=== PATIENT | male | born 1980 | race Hispanic/Latino ===

== ENCOUNTER 2018-01-16 21:19 | Inpatient (IN) | payer MEDICAID ==
[2018-01-16 23:21] LABS: BASO # 0.1 K/uL (0.0-0.2); BASO % 0.9 % (0.0-2.0); EOS # 0.2 K/uL (0.0-0.7); EOS % 1.7 % (0.0-4.0); HEMOGLOBIN 14.5 g/dL (12.0-18.0); LYMPH # 2.2 K/uL (1.0-4.3); MEAN CELL VOLUME 91.7 fL (80.0-94.0); MEAN CORPUSCULAR HEMOGLOBIN 32.1 pg (27.0-31.0); MEAN PLATELET VOLUME 8.3 fL (7.2-11.7); MONO # 1.1 K/uL (0.0-0.8); MONO % 10.9 % (0.0-10.0); NEUT # 6.5 K/uL (1.8-7.0); NEUT % 64.5 % (50.0-75.0); RBC 4.52 Mil/uL (4.40-5.90); RED CELL DISTRIBUTION WIDTH 13.2 % (11.5-14.5); WHITE BLOOD COUNT 10.1 K/uL (4.8-10.8)
[2018-01-16 23:21] LABS: URINE AMORPHOUS SEDIMENT RARE /ul (<OCC); URINE BACTERIA RARE (<OCC); URINE BILIRUBIN NEGATIVE (NEGATIVE); URINE BLOOD NEGATIVE (NEGATIVE); URINE CLARITY Hazy (Clear); URINE COLOR Yellow (YELLOW); URINE GLUCOSE (UA) NORMAL (Normal); URINE LEUKOCYTE ESTERASE NEG Leu/uL (Negative); URINE PROTEIN NEGATIVE (NEGATIVE)
[2018-01-16 23:29] LABS: BARBITURATES, UR NEGATIVE (NEGATIVE); BENZODIAZEPINES, UR NEGATIVE (NEGATIVE); OPIATES, UR POSITIVE (NEGATIVE)
[2018-01-16 23:33] LABS: ALB/GLOB RATIO 1.2 (1.0-2.1); ALBUMIN 4.4 g/dL (3.5-5.0); ALT/SGPT 28 U/L (21-72); AST/SGOT 28 U/L (17-59); BLOOD UREA NITROGEN 13 mg/dL (9-20); CALCIUM 9.6 mg/dl (8.6-10.4); GFR AFRICAN-AMERICAN > 60; GFR NON-AFRICAN AMERICAN > 60
[2018-01-16 23:46] LABS: PHENCYCLIDINE, UR NEGATIVE (NEGATIVE)
--- NOTE | 2018-01-17 00:30 | C.PDOC ---
Time Seen by Provider: 01/16/18 22:18 Chief Complaint (Nursing): Psychiatric Evaluation History Per: Patient Onset/Duration Of Symptoms: Days Current Symptoms Are (Timing): Still Present Suicide/Self Injury Attempted (Context): None Modifying Factor(s): Narcotics Severity: Moderate Associated Symptoms: Depression Additional History Per: Prior Records Past Medical History Reviewed: Historical Data, Nursing Documentation, Vital Signs Vital Signs: Last Vital Signs Temp 98 F 01/16/18 21:55 Pulse 98 H 01/16/18 21:55 Resp 14 01/16/18 21:55 BP 109/64 01/16/18 21:55 Pulse Ox 96 01/17/18 00:30 - Medical History PMH: Bipolar Disorder, Depression, Personality Disorder Family History: States: Unknown Family Hx - Social History Hx Alcohol Use: Yes Hx Substance Use: Yes - Immunization History Hx Tetanus Toxoid Vaccination: No Hx Influenza Vaccination: No Hx Pneumococcal Vaccination: No Review Of Systems Except As Marked, All Systems Reviewed And Found Negative. Constitutional: Negative for: Fever Cardiovascular: Negative for: Chest Pain Respiratory: Negative for: Shortness of Breath Gastrointestinal: Negative for: Vomiting, Abdominal Pain Musculoskeletal: Negative for: Neck Pain Neurological: Negative for: Weakness, Numbness Physical Exam - Physical Exam Appears: Non-toxic, No Acute Distress Skin: Normal Color, Warm, Dry, No Rash Head: Atraumatic, Normacephalic Eye(s): bilateral: PERRL, EOMI Neck: Normal ROM, Supple Cardiovascular: Rhythm Regular Respiratory: Normal Breath Sounds, No Accessory Muscle Use Gastrointestinal/Abdominal: Soft, No Tenderness Back: No CVA Tenderness Extremity: Normal ROM Neurological/Psych: Oriented x3, Normal Motor, Normal Sensation ED Course And Treatment - Laboratory Results Result Diagrams: 01/16/18 23:17 01/16/18 23:17 Lab Interpretation: No Acute Changes O2 Sat by Pulse Oximetry: 96 Pulse Ox Interpretation: Normal Disposition - Disposition Disposition Time: 00:57 Condition: STABLE Forms: [facility] (Eritrean) - Clinical Impression Clinical Impression: Drug abuse, Depressed Physician Patient Turnover Patient Signed Over To: Jeanne Sánchez Handoff Comments: to f/up road worker
--- NOTE | 2018-01-17 07:45 | PCM.BM ---
<Emili Garcia - Last Filed: 01/17/18 07:43> Treatment Plan Problems - Problems identified on initial assessmt Depression Date Initiated: 01/17/18 Time Initiated: 07:44 Assessment reference: NA Status: Active Substance Abuse Date Initiated: 01/17/18 Time Initiated: 07:44 Assessment reference: NA Status: Active Treatment assets and liabiliti Patient Assests: adapts well, cooperative, educated, self-reliant, ADL independent, physically healthy, negotiates basic needs, cognitively intact Patient Liabilities: live alone (Homeless), financial problems, poor support system, substance abuse (Heroin and ETOH), medical problems (None) - Milieu Protocol Maintain good personal hygiene: daily Encourage regular showers, daily Remind patient to perform daily oral care, daily Assist patient to perform ADL's (Self) Conduct patient checks and document Observation sheet: Q15 minutes (For safety) Maintain personal safety: every shift Educate patient to report safety concerns to staff, every shift Monitor environment for contraband/sharps Medication safety: Monitor for expected outcome, potential side effects: every shift, Assess barriers to learning: every shift, Assess readiness for medication education: every shift <Elva Lujan - Last Filed: 01/17/18 14:24> Family Contact Family involvement: Patient does not wish Family/SO involvement Family contact: Patient declines to allow family contact at present - Goals for Treatment Patient goals for treatment: " I want to go to a rehab program." <Sola Reed - Last Filed: 01/21/18 11:32> - Diagnosis (1) Major depressive disorder, recurrent severe without psychotic features Status: Acute Interventions: 01/21/18 11:32 * Assess/adjust medications daily and /or as needed * See patient on an individual basis 7x/week to assess symptoms of depression * Monitor for side effects & effectiveness of medications *
--- NOTE | 2018-01-17 10:15 | PCM.PSYCH ---
Initial Psychiatric Evaluation - Initial Psychiatric Evaluation Type of Admission: Voluntary Legal Status: Capacity Chief Complaint (in patient's own words): I was feeling extremely depressed and suicidal.' History of Present Illness and Precipitating Events: Patient is a 37 yo CM with h/o depression, alcohol and opioid abuse, came to the ED with SI with plan to OD. As per the ED notes, pt reported that he stopped taking his meds and relapsed on alcohol and heroin. Pt reports the following: "If I keep using, I'm going to kill myself." Pt continued: "My depression has been so bad." I haven't had my medications" Just can't seem to get ahead in life;" Pt reports having vague thoughts of suicide (without plan) over the past "few days"; Pt reports symptoms of anhedonia, which he described as: "It's like to the point I can't even moved;" I'm drained of all my energy." Pt reports of abusing ETOH more than 1 pint daily and heroin upto 10 bags daily. His last abuse was yesterday, when he abused heroin 10 bags and consumed 1 pint of alcohol. He reports depressed mood and feelings of hopelessness and helplessness. He reports poor sleep and poor appetite. He denies any auditory of visual hallucinations or any psychotic symptoms. He reports withdrawal symptoms including nausea, headaches, joint pains and sweating. He reports past psychiatric history of depression, heroin and alcohol abuse. He reports h/o few inpatient psychiatric hospitalizations, last discharged from [facility] 2014. He reports past SI with more than 2 attempts by OD on Xanax. PMH: None reported Past Psychiatric History - Past Psychiatric History Previous Treatment History: Inpatient Pertinent Medical Hx (Current Medical&Sleep Prob, Allergies): Allergies Allergy/AdvReac Type Severity Reaction Status Date / Time Penicillins Allergy Verified 01/16/18 21:59 No Known Home Med 01/16/18 Review of Systems - Review of Systems All systems: reviewed and no additional remarkable complaints except - Psychiatric Psychiatric: Anxiety, Irritability, Suicidal Ideation Mental Status Examination - Personal Presentation Personal Presentation: Looks stated age - Affect Affect: Constricted, Depressed - Motor Activity Motor Activity: Calm - Reliability in Providing Information Reliability in Providing Information: Fair - Speech Speech: Organized - Mood Mood: Depressed, Anxious - Formal Thought Process Formal Thought Process: No Impairment - Obsessions/Compulsions Obsessions: No Compulsions: No - Cognitive Functions Orientation: Person, Place, Situation, Time Sensorium: Alert Attention/Concentration: Attentive Abstract Thinking: [place] Estimate of Intelligence: Below average Judgement: Imparied, as evidence by: Poor judgement, Imparied, as evidence by: Lack of insight into illness - Risk Risk: Suicidal, Withdrawal, Diminished functioning - Limitations Limitations: Living alone DSM 5 DX - DSM 5 DSM 5 Diagnosis: Major depressive disorder recurrent severe without psychotic features Alcohol use disorder severe Alcohol withdrawal Opioid use disorder severe Opioid withdrawal - Recommended/Plan of Treatment Treatment Recommendations and Plan of Treatment: Major depressive disorder recurrent severe without psychotic features -Psychoeducation -Supportive therapy, group therapy, individual therapy -Prozac 20 mg -Neurontin 300 mg by mouth 2 times a day -Trazodone 50 mg by mouth daily at bedtime Opioid use disorder severe Opioid withdrawal -Psychoeducation -Supportive therapy, individual therapy -Use [place] for abstinence -Clonidine when necessary -Methadone taper -Start prn meds Alcohol use disorder severe Alcohol withdrawal -Psychoeducation -Supportive therapy, individual therapy -Use [place] for abstinence -Ativan prn - Smoking Cessation Smoking Cessation Initiated: No
[2018-01-17] MEDS ORDERED: Aluminum Hydroxide/Magnesium Hydroxide Susp (30 mL) PO PRN (11:28)
[2018-01-17] MEDS: Multiple Vitamins Tab PO SCH (12:21)
[2018-01-18 06:45] VITALS: O2SAT 99
[2018-01-18] MEDS: Multiple Vitamins Tab PO SCH (10:46)
--- NOTE | 2018-01-19 01:03 | PCM.PYCHPN ---
Psychiatric Progress Note - Psychiatric Progress Note Patient seen today, length of contact: 15 min Patient Chief Complaint: I was feeling extremely depressed and suicidal.' Problems Identified/Issues Discussed: Patient seen and evaluated, chart reviewed and discussed with the nurse. He reports depressed mood and feelings of hopelessness and helplessness. He still reports suicidal ideation without any plan. Patient remained isolated, confined and withdrawn. Patient reports withdrawal symptoms including nausea, headaches, cramps and sweating. Patient is compliant with medications and denies any side effects. Symptoms are improving but need more time to stabilize. Support and psychoeducation given. Medication Change: Yes (methadone taper) Medical Record Reviewed: Yes Mental Status Examination - Cognitive Function Orientation: Person, Place, Situation, Time Memory: Intact Attention: WNL Concentration: WNL Association: WNL Fund of Knowledge: Poor - Mood Mood: Depressed, Anxious - Affect Affect: Constricted, Depressed - Speech Speech: Soft - Formal Thought Process Formal Thought Process: No Impairment - Suicidal Ideation Suicidal Ideation: No - Homicidal Ideation Homicidal Ideation: No Goal/Treatment Plan - Goal/Treatment Plan Need for Continued Stay: Severe depression anxiety, Severe functional impairment Progress Toward Problem(s) and Goals/Treatment Plan: Major depressive disorder recurrent severe without psychotic features -Psychoeducation -Supportive therapy, group therapy, individual therapy -Prozac 20 mg -Neurontin 300 mg by mouth 2 times a day -Trazodone 50 mg by mouth daily at bedtime Opioid use disorder severe Opioid withdrawal -Psychoeducation -Supportive therapy, individual therapy -Use [place] for abstinence -Clonidine when necessary -Methadone taper -Start prn meds Alcohol use disorder severe Alcohol withdrawal -Psychoeducation -Supportive therapy, individual therapy -Use [place] for abstinence -Ativan prn - Smoking Cessation Smoking Cessation Initiated: Yes
[2018-01-19] MEDS ORDERED: Pneumococcal 23-Valent Vaccine IM ONE (10:00)
[2018-01-19] MEDS: Multiple Vitamins Tab PO SCH (10:36)
--- NOTE | 2018-01-19 22:51 | PCM.PYCHPN ---
Psychiatric Progress Note - Psychiatric Progress Note Patient seen today, length of contact: 15 min Patient Chief Complaint: I was feeling extremely depressed and suicidal.' Problems Identified/Issues Discussed: Patient seen and evaluated, chart reviewed and discussed with the nurse. He reports depressed mood and feelings of hopelessness and helplessness. He still reports suicidal ideation without any plan. Patient remained isolated, confined and withdrawn. Patient reports withdrawal symptoms including nausea, headaches, cramps and sweating. Patient is compliant with medications and denies any side effects. Symptoms are improving but need more time to stabilize. Support and psychoeducation given. Medication Change: Yes (methadone taper) Medical Record Reviewed: Yes Mental Status Examination - Cognitive Function Orientation: Person, Place, Situation, Time Memory: Intact Attention: WNL Concentration: WNL Association: WNL Fund of Knowledge: Poor - Mood Mood: Depressed, Anxious - Affect Affect: Constricted, Depressed - Speech Speech: Soft - Formal Thought Process Formal Thought Process: No Impairment - Suicidal Ideation Suicidal Ideation: No - Homicidal Ideation Homicidal Ideation: No Goal/Treatment Plan - Goal/Treatment Plan Need for Continued Stay: Severe depression anxiety, Severe functional impairment Progress Toward Problem(s) and Goals/Treatment Plan: Major depressive disorder recurrent severe without psychotic features -Psychoeducation -Supportive therapy, group therapy, individual therapy -Prozac 20 mg -Neurontin 300 mg by mouth 2 times a day -Trazodone 50 mg by mouth daily at bedtime Opioid use disorder severe Opioid withdrawal -Psychoeducation -Supportive therapy, individual therapy -Use [place] for abstinence -Clonidine when necessary -Methadone taper -Start prn meds Alcohol use disorder severe Alcohol withdrawal -Psychoeducation -Supportive therapy, individual therapy -Use [place] for abstinence -Ativan prn
[2018-01-20] MEDS: Multiple Vitamins Tab PO SCH (09:33)
--- NOTE | 2018-01-20 10:08 | PCM.PYCHPN ---
Psychiatric Progress Note - Psychiatric Progress Note Patient seen today, length of contact: 15 min Patient Chief Complaint: I am feeling less depressed.' Problems Identified/Issues Discussed: Patient seen and evaluated, chart reviewed and discussed with the nurse. He reports some improvement in his depressed mood and some improvement in the feelings of hopelessness and helplessness. Patient remained isolated, confined and withdrawn. Patient is compliant with medications and denies any side effects. Symptoms are improving but need more time to stabilize. Support and psychoeducation given. Medication Change: Yes (methadone taper) Medical Record Reviewed: Yes Mental Status Examination - Cognitive Function Orientation: Person, Place, Situation, Time Memory: Intact Attention: WNL Concentration: WNL Association: WNL Fund of Knowledge: Poor - Mood Mood: Depressed, Anxious - Affect Affect: Constricted, Depressed - Speech Speech: Soft - Formal Thought Process Formal Thought Process: No Impairment - Suicidal Ideation Suicidal Ideation: No - Homicidal Ideation Homicidal Ideation: No Goal/Treatment Plan - Goal/Treatment Plan Need for Continued Stay: Severe depression anxiety, Severe functional impairment Progress Toward Problem(s) and Goals/Treatment Plan: Major depressive disorder recurrent severe without psychotic features -Psychoeducation -Supportive therapy, group therapy, individual therapy -Prozac 40 mg -Neurontin 300 mg by mouth 3 times a day -Trazodone 50 mg by mouth daily at bedtime Opioid use disorder severe Opioid withdrawal -Psychoeducation -Supportive therapy, individual therapy -Use [place] for abstinence -Clonidine when necessary -Methadone taper -Start prn meds Alcohol use disorder severe Alcohol withdrawal -Psychoeducation -Supportive therapy, individual therapy -Use [place] for abstinence -Ativan prn - Smoking Cessation Smoking Cessation Initiated: No
[2018-01-21] MEDS: Multiple Vitamins Tab PO SCH (09:01)
--- NOTE | 2018-01-21 10:23 | PCM.PYCHPN ---
Psychiatric Progress Note - Psychiatric Progress Note Patient seen today, length of contact: 15 min Patient Chief Complaint: I still feeling depressed.' Problems Identified/Issues Discussed: Patient seen and evaluated, chart reviewed and discussed with the nurse. He reports some improvement in his depressed mood and reports some improvement in the withdrawal s/s. Patient remained isolated, confined and withdrawn. Patient is compliant with medications and denies any side effects. Symptoms are improving but need more time to stabilize. Support and psychoeducation given. Medication Change: Yes (methadone taper) Medical Record Reviewed: Yes Mental Status Examination - Cognitive Function Orientation: Person, Place, Situation, Time Memory: Intact Attention: WNL Concentration: WNL Association: WNL Fund of Knowledge: Poor - Mood Mood: Depressed, Anxious - Affect Affect: Constricted, Depressed - Speech Speech: Soft - Formal Thought Process Formal Thought Process: No Impairment - Suicidal Ideation Suicidal Ideation: No - Homicidal Ideation Homicidal Ideation: No Goal/Treatment Plan - Goal/Treatment Plan Need for Continued Stay: Severe depression anxiety, Severe functional impairment Progress Toward Problem(s) and Goals/Treatment Plan: Major depressive disorder recurrent severe without psychotic features -Psychoeducation -Supportive therapy, group therapy, individual therapy -Prozac 40 mg -Neurontin 300 mg by mouth 3 times a day -Trazodone 50 mg by mouth daily at bedtime Opioid use disorder severe Opioid withdrawal -Psychoeducation -Supportive therapy, individual therapy -Use [place] for abstinence -Clonidine when necessary -Methadone taper -Start prn meds Alcohol use disorder severe Alcohol withdrawal -Psychoeducation -Supportive therapy, individual therapy -Use [place] for abstinence -Ativan prn - Smoking Cessation Smoking Cessation Initiated: No
[2018-01-22] MEDS: Multiple Vitamins Tab PO SCH (09:46)
--- NOTE | 2018-01-23 08:47 | PCM.PYCHPN ---
Psychiatric Progress Note - Psychiatric Progress Note Patient seen today, length of contact: 15 min Patient Chief Complaint: "Nervous" Problems Identified/Issues Discussed: The pt is seen, chart reviewed, case discussed with staff. The pt is compliant with medications and reports no side-effects. Symptoms are improving but needs more time to stabilize. After care discussed, support and psychoeducation given. Medication Change: Yes (methadone taper) Medical Record Reviewed: Yes Mental Status Examination - Cognitive Function Orientation: Person, Place, Situation, Time Memory: Intact Attention: WNL Concentration: WNL Association: WNL Fund of Knowledge: Poor - Mood Mood: Depressed, Anxious - Affect Affect: Constricted, Depressed - Speech Speech: Soft - Formal Thought Process Formal Thought Process: No Impairment - Suicidal Ideation Suicidal Ideation: No - Homicidal Ideation Homicidal Ideation: No Goal/Treatment Plan - Goal/Treatment Plan Need for Continued Stay: Severe depression anxiety, Severe functional impairment Progress Toward Problem(s) and Goals/Treatment Plan: Continue medications Support and psychoeducation daily Attend groups and activities daily After care planning by NIKHIL - awaiting rehab acceptance
[2018-01-23] MEDS: Multiple Vitamins Tab PO SCH (09:06)
--- NOTE | 2018-01-23 20:43 | PCM.PYCHPN ---
Psychiatric Progress Note - Psychiatric Progress Note Patient seen today, length of contact: 15 min Patient Chief Complaint: "OK" Problems Identified/Issues Discussed: The pt is seen, chart reviewed, case discussed with staff. Support given, CBT and SD used briefly No new symptoms reported, improving slowly and needs more time No SEs from medications, risks discussed. After care discussed - he might be accepted to [facility] today Medication Change: Yes (methadone taper) Medical Record Reviewed: Yes Mental Status Examination - Cognitive Function Orientation: Person, Place, Situation, Time Memory: Intact Attention: WNL Concentration: WNL Association: WNL Fund of Knowledge: Poor - Mood Mood: Depressed, Anxious - Affect Affect: Constricted, Depressed - Speech Speech: Soft - Formal Thought Process Formal Thought Process: No Impairment - Suicidal Ideation Suicidal Ideation: No - Homicidal Ideation Homicidal Ideation: No Goal/Treatment Plan - Goal/Treatment Plan Need for Continued Stay: Severe depression anxiety, Severe functional impairment Progress Toward Problem(s) and Goals/Treatment Plan: Continue medications Support and psychoeducation daily Attend groups and activities daily After care planning by NIKHIL - awaiting rehab acceptance
[2018-01-24] MEDS: Multiple Vitamins Tab PO SCH (09:40)
--- NOTE | 2018-01-24 11:20 | PCM.PYCHPN ---
Psychiatric Progress Note - Psychiatric Progress Note Patient seen today, length of contact: 15 min Patient Chief Complaint: I still feeling depressed.' Problems Identified/Issues Discussed: Patient seen and evaluated, chart reviewed and discussed with the nurse. He reports some improvement in his depressed mood and reports some improvement in the withdrawal s/s. Patient remained isolated, confined and withdrawn. Patient is compliant with medications and denies any side effects. Symptoms are improving but need more time to stabilize. Support and psychoeducation given. Medication Change: Yes (methadone taper) Medical Record Reviewed: Yes Mental Status Examination - Cognitive Function Orientation: Person, Place, Situation, Time Memory: Intact Attention: WNL Concentration: WNL Association: WNL Fund of Knowledge: Poor - Mood Mood: Depressed, Anxious - Affect Affect: Constricted, Depressed - Speech Speech: Soft - Formal Thought Process Formal Thought Process: No Impairment - Suicidal Ideation Suicidal Ideation: No - Homicidal Ideation Homicidal Ideation: No Goal/Treatment Plan - Goal/Treatment Plan Need for Continued Stay: Severe depression anxiety, Severe functional impairment Progress Toward Problem(s) and Goals/Treatment Plan: Major depressive disorder recurrent severe without psychotic features -Psychoeducation -Supportive therapy, group therapy, individual therapy -Prozac 40 mg -Neurontin 300 mg by mouth 3 times a day -Trazodone 50 mg by mouth daily at bedtime Opioid use disorder severe Opioid withdrawal -Psychoeducation -Supportive therapy, individual therapy -Use [place] for abstinence -Clonidine when necessary -Methadone taper -Start prn meds Alcohol use disorder severe Alcohol withdrawal -Psychoeducation -Supportive therapy, individual therapy -Use [place] for abstinence -Ativan prn
[2018-01-25] MEDS: Multiple Vitamins Tab PO SCH (09:54)
--- NOTE | 2018-01-25 14:26 | PCM.PYCHPN ---
Psychiatric Progress Note - Psychiatric Progress Note Patient seen today, length of contact: 15 min Patient Chief Complaint: I still feeling depressed.' Problems Identified/Issues Discussed: Patient seen and evaluated, chart reviewed and discussed with the nurse. He reports some improvement in his depressed mood and reports some improvement in the withdrawal s/s. Patient remained isolated, confined and withdrawn. Patient is compliant with medications and denies any side effects. Symptoms are improving but need more time to stabilize. Support and psychoeducation given. Medication Change: Yes (methadone taper) Medical Record Reviewed: Yes Mental Status Examination - Cognitive Function Orientation: Person, Place, Situation, Time Memory: Intact Attention: WNL Concentration: WNL Association: WNL Fund of Knowledge: Poor - Mood Mood: Depressed, Anxious - Affect Affect: Constricted, Depressed - Speech Speech: Soft - Formal Thought Process Formal Thought Process: No Impairment - Suicidal Ideation Suicidal Ideation: No - Homicidal Ideation Homicidal Ideation: No Goal/Treatment Plan - Goal/Treatment Plan Need for Continued Stay: Severe depression anxiety, Severe functional impairment Progress Toward Problem(s) and Goals/Treatment Plan: Major depressive disorder recurrent severe without psychotic features -Psychoeducation -Supportive therapy, group therapy, individual therapy -Prozac 40 mg -Neurontin 300 mg by mouth 3 times a day -Trazodone 50 mg by mouth daily at bedtime Opioid use disorder severe Opioid withdrawal -Psychoeducation -Supportive therapy, individual therapy -Use [place] for abstinence -Clonidine when necessary -Methadone taper -Start prn meds Alcohol use disorder severe Alcohol withdrawal -Psychoeducation -Supportive therapy, individual therapy -Use [place] for abstinence -Ativan prn
[2018-01-26 06:15] VITALS: RESP 20; TEMP 97.8
[2018-01-26] MEDS: Multiple Vitamins Tab PO SCH (09:50)
[2018-01-26 10:15] VITALS: BP 120/71; PULSE 66
--- NOTE | 2018-01-26 10:45 | PCM.PYCHDC ---
Mental Status Examination - Mental Status Examination Orientation: Person, Place, Situation, Time Memory: Intact Mood: Neutral Affect: Constricted Speech: Soft Attention: WNL Concentration: WNL Association: WNL Fund of Knowledge: WNL Formal Thought Process: No Impairment Description of patient's judgement and insight: good, fair Psychotic Thoughts and Behaviors: denies any AVH Suicidal Ideation: No Current Homicidal Ideation?: No Discharge Summary - Discharge Note Reason for Hospitalization: Patient is a 37 yo CM with h/o depression, alcohol and opioid abuse, came to the ED with SI with plan to OD. As per the ED notes, pt reported that he stopped taking his meds and relapsed on alcohol and heroin. Pt reports the following: "If I keep using, I'm going to kill myself." Pt continued: "My depression has been so bad." I haven't had my medications" Just can't seem to get ahead in life;" Pt reports having vague thoughts of suicide (without plan) over the past "few days"; Pt reports symptoms of anhedonia, which he described as: "It's like to the point I can't even moved;" I'm drained of all my energy." Pt reports of abusing ETOH more than 1 pint daily and heroin upto 10 bags daily. His last abuse was yesterday, when he abused heroin 10 bags and consumed 1 pint of alcohol. He reports depressed mood and feelings of hopelessness and helplessness. He reports poor sleep and poor appetite. He denies any auditory of visual hallucinations or any psychotic symptoms. He reports withdrawal symptoms including nausea, headaches, joint pains and sweating. He reports past psychiatric history of depression, heroin and alcohol abuse. He reports h/o few inpatient psychiatric hospitalizations, last discharged from [facility] 2014. He reports past SI with more than 2 attempts by OD on Xanax. Consultations:: List each consultation separately and include: 1. Reason for request. 2. Findings. 3. Follow-up Summary of Hospital Course include:: 1. Description of specific treatment plan utilized for patients during their course of treatmen. 2. Summarize the time- course for resolution of acute symptoms and/or regressed behaviors. 3. Describe issues identified and worked on during hospitalization. 4. Describe medication utilized. 5. Describe medical problems identified and treated. 6. Reassessment of suicide risk Summary of Hospital Course: Patient is a 37 yo CM with h/o depression, alcohol and opioid abuse, came to the ED with SI with plan to OD. As per the ED notes, pt reported that he stopped taking his meds and relapsed on alcohol and heroin. Pt reports the following: "If I keep using, I'm going to kill myself." Pt continued: "My depression has been so bad." I haven't had my medications" Just can't seem to get ahead in life;" Pt reports having vague thoughts of suicide (without plan) over the past "few days"; Pt reports symptoms of anhedonia, which he described as: "It's like to the point I can't even moved;" I'm drained of all my energy." Pt reports of abusing ETOH more than 1 pint daily and heroin upto 10 bags daily. His last abuse was yesterday, when he abused heroin 10 bags and consumed 1 pint of alcohol. He reports depressed mood and feelings of hopelessness and helplessness. He reports poor sleep and poor appetite. He denies any auditory of visual hallucinations or any psychotic symptoms. He reports withdrawal symptoms including nausea, headaches, joint pains and sweating. He reports past psychiatric history of depression, heroin and alcohol abuse. He reports h/o few inpatient psychiatric hospitalizations, last discharged from [facility] 2014. He reports past SI with more than 2 attempts by OD on Xanax. PMH: None reported - Diagnosis (1) Major depressive disorder, recurrent severe without psychotic features Current Visit: Yes Status: Acute - Final Diagnosis (DSM 5) Condition upon Discharge: STABLE Disposition: HOME/ ROUTINE Follow-up Treatment Plan: Major depressive disorder recurrent severe without psychotic features -Psychoeducation -Supportive therapy, group therapy, individual therapy -Prozac 40 mg -Neurontin 300 mg by mouth 3 times a day -Trazodone 50 mg by mouth daily at bedtime Opioid use disorder severe Opioid withdrawal -Psychoeducation -Supportive therapy, individual therapy -Use AL for abstinence -Clonidine when necessary -Methadone taper -Start prn meds Alcohol use disorder severe Alcohol withdrawal -Psychoeducation -Supportive therapy, individual therapy -Use AL for abstinence -Ativan prn Prescriptions/Medication Reconciliation: FLUoxetine [Prozac] 40 mg PO DAILY #30 cap Gabapentin [Neurontin] 300 mg PO TID #90 cap traZODone [Desyrel] 100 mg PO HS PRN #30 tab PRN Reason: Insomnia
== END 2018-01-26 14:36 | disposition home or self-care (01) | DRG 744 ==
LOC: C.ER 21:19 → C.5E 01-17 06:15
PROVIDERS: ADMIT Psychiatry & Neurology Psychiatry; ATTEND Psychiatry & Neurology Psychiatry
PROC: HZ2ZZZZ Detoxification Services for Substance Abuse Treatment (ICD-10-PCS; principal; 2018-01-17)
PROC: GZHZZZZ Group Psychotherapy (ICD-10-PCS; 2018-01-17)
DX: F11.23 Opioid dependence with withdrawal (principal); F33.2 Major depressive disorder, recurrent severe without psychotic features; F17.200 Nicotine dependence, unspecified, uncomplicated; F60.9 Personality disorder, unspecified; F10.10 Alcohol abuse, uncomplicated; Y90.9 Presence of alcohol in blood, level not specified

== ENCOUNTER 2018-03-18 18:11 | Inpatient (IN) | payer MEDICAID ==
[2018-03-18 18:34] VITALS: BMI 29.1
[2018-03-18] MEDS ORDERED: Clindamycin 600 MG in Sodium Chloride 0.9% 100 ML IVPB STA (20:25)
[2018-03-18] MEDS ORDERED: Vancomycin 1 gm/NS 200 ml 1 GM/200 ML BAG IVPB STA (20:25)
[2018-03-18] MEDS ORDERED: Sodium Chloride 0.9% 1,000 ML IV ONE (20:28)
--- NOTE | 2018-03-18 20:35 | C.PDOC ---
History Of Present Illness 37 year old male presents to the ED for evaluation of worsening pain, swelling and burning to his bilateral lower extremities. Patient was evaluated in [facility] 4 days ago and was ruled out for possibility of DVT. Patient states he feels very ill and his symptoms have been worsening. Patient states he was prescribed Furosemide without improvement. Patient reports smoking one pack/day for the past 20 years and admits to social drinking. He denies fever, chills, chest pain, shortness of breath, extremity numbness/ weakness or recent trauma/injury to the areas. Time Seen by Provider: 03/18/18 19:08 Chief Complaint (Nursing): Lower Extremity Problem/Injury History Per: Patient History/Exam Limitations: no limitations Onset/Duration Of Symptoms: Days Current Symptoms Are (Timing): Worse Past Medical History Reviewed: Historical Data, Nursing Documentation, Vital Signs Vital Signs: Last Vital Signs Temp 100.8 F H 03/18/18 18:34 Pulse 105 H 03/18/18 18:34 Resp 19 03/18/18 18:34 BP 123/71 03/18/18 18:34 Pulse Ox 96 03/18/18 22:08 - Medical History PMH: Bipolar Disorder, Depression, Personality Disorder Denies: Diabetes, Hepatitis, HIV, HTN, Seizures, Sexually Transmitted Disease Surgical History: No Surg Hx - [facility] Procedures DETOXIFICATION SERVICES FOR SUBSTANCE ABUSE TREATMENT (01/17/18) GROUP PSYCHOTHERAPY (01/17/18) Family History: States: Unknown Family Hx - Social History Hx Alcohol Use: Yes Hx Substance Use: Yes (Cleaned of heroine since 01/2018) - Immunization History Hx Tetanus Toxoid Vaccination: No Hx Influenza Vaccination: No Hx Pneumococcal Vaccination: No Review Of Systems Constitutional: Negative for: Fever, Chills Cardiovascular: Negative for: Chest Pain Respiratory: Negative for: Shortness of Breath Musculoskeletal: Positive for: Leg Pain (pain, swelling and burning to bilateral lower extremities ) Neurological: Negative for: Weakness, Numbness Physical Exam - Physical Exam Appears: Non-toxic, No Acute Distress Skin: Warm, Dry, Other (erythema and warmth extending from bilateral ankles to groins, consistent with cellulitis) Head: Atraumatic, Normacephalic Eye(s): bilateral: Normal Inspection Oral Mucosa: Moist Neck: Supple Chest: Symmetrical, No Deformity, No Tenderness Cardiovascular: Rhythm Regular, No Murmur Respiratory: Normal Breath Sounds, No Rales, No Rhonchi, No Wheezing Extremity: Normal ROM, Capillary Refill (less than 2 seconds ) Pulses: Left Dorsalis Pedis: Normal, Right Dorsalis Pedis: Normal Neurological/Psych: Oriented x3, Normal Speech, Normal Cognition ED Course And Treatment - Laboratory Results Result Diagrams: 03/18/18 20:59 03/18/18 20:59 ECG: Interpreted By Me, Viewed By Me ECG Rhythm: Sinus Rhythm Interpretation Of ECG: WY: 144. QRS: 90. QT: 380. QTC: 424. no ischemic changes. Rate From EC (bpm) O2 Sat by Pulse Oximetry: 96 (on RA) Pulse Ox Interpretation: Normal - Radiology CXR: Interpreted by Me, Viewed By Me CXR Interpretation: Yes: Other (negative ) Medical Decision Making Medical Decision Making: Progress: Bloodwork, urinalysis, CXR, and EKG ordered and reviewed. Clindamycin IVP, Vancomycin IVP and IV Fluids administered. 21:[address] Pulido, who accepts the patient under his care. Disposition Doctor Will See Patient In The: Hospital Counseled Patient/Family Regarding: Diagnosis - Disposition Disposition: HOSPITALIZED Disposition Time: 21:57 Condition: GUARDED - Clinical Impression Clinical Impression: Cellulitis - Scribe Statement The provider has reviewed the documentation as recorded by the Scribe (Marlen Thompson) Provider Attestation: All medical record entries made by the Scribe were at my direction and personally dictated by me. I have reviewed the chart and agree that the record accurately reflects my personal performance of the history, physical exam, medical decision making, and the department course for this patient. I have also personally directed, reviewed, and agree with the discharge instructions and disposition.
[2018-03-18] MEDS ORDERED: Sodium Chloride 0.9% 1,000 ML ONE (20:47)
[2018-03-18] MEDS ORDERED: Clindamycin 600mg/50ml NS 600 MG/50 ML BAG IVPB ONE ×2 (20:47→21:00)
[2018-03-18 21:02] LABS: BASO % 0.7 % (0.0-2.0); EOS # 0.1 K/uL (0.0-0.7); EOS % 0.9 % (0.0-4.0); HEMOGLOBIN 12.9 g/dL (12.0-18.0); LYMPH # 0.8 K/uL (1.0-4.3); LYMPH % 10.5 % (20.0-40.0); MEAN CELL VOLUME 92.5 fL (80.0-94.0); MEAN CORPUSCULAR HEMOGLOBIN 31.5 pg (27.0-31.0); MEAN PLATELET VOLUME 8.1 fL (7.2-11.7); MONO % 13.8 % (0.0-10.0); NEUT # 5.4 K/uL (1.8-7.0); NEUT % 74.1 % (50.0-75.0); RBC 4.11 Mil/uL (4.40-5.90); WHITE BLOOD COUNT 7.3 K/uL (4.8-10.8)
[2018-03-18 21:19] LABS: ALB/GLOB RATIO 1.4 (1.0-2.1); ALBUMIN 3.9 g/dL (3.5-5.0); ALT/SGPT 126 U/L (21-72); AST/SGOT 320 U/L (17-59); BLOOD UREA NITROGEN 15 mg/dL (9-20); CALCIUM 8.8 mg/dl (8.6-10.4); GFR AFRICAN-AMERICAN > 60; GFR NON-AFRICAN AMERICAN > 60
[2018-03-18] MEDS ORDERED: Aztreonam 2 GM in Sodium Chloride 0.9% 100 ML IVPB ONE (21:55)
[2018-03-19] MEDS ORDERED: Vancomycin 1 gm/NS 200 ml 1 GM/200 ML BAG IVPB SCH (00:30)
[2018-03-19 01:09] LABS: SQUAMOUS EPITHIAL < 1 /hpf (0-5); URINE BILIRUBIN NEGATIVE (NEGATIVE); URINE BLOOD NEGATIVE (NEGATIVE); URINE CLARITY Clear (Clear); URINE COLOR Amber (YELLOW); URINE GLUCOSE (UA) NORMAL (Normal); URINE LEUKOCYTE ESTERASE NEG Leu/uL (Negative); URINE PROTEIN NEGATIVE (NEGATIVE)
[2018-03-19] MEDS: Aztreonam 2 GM in Sodium Chloride 0.9% 100 ML IVPB SCH ×3 (01:16→15:42)
[2018-03-19] MEDS: Enoxaparin 40 mg Syringe SC SCH (10:21)
[2018-03-19] MEDS: Vancomycin 1 gm/NS 200 ml 1 GM/200 ML BAG IVPB SCH ×2 (12:02→23:45)
--- NOTE | 2018-03-19 18:00 | RAD ---
HISTORY: Sepsis Patient COMPARISON: No prior. TECHNIQUE: Chest PA and lateral FINDINGS: LUNGS: No active pulmonary disease. PLEURA: No significant pleural effusion identified. No pneumothorax apparent. CARDIOVASCULAR: Normal. OSSEOUS STRUCTURES: No significant abnormalities. VISUALIZED UPPER ABDOMEN: Normal. OTHER FINDINGS: None. IMPRESSION: No active disease.
--- NOTE | 2018-03-20 00:37 | CP.PCM.HP ---
History of Present Illness - History of Present Illness History of Present Illness: History Of Present Illness 37 year old male presents to the ED for evaluation of worsening pain, swelling and burning to his bilateral lower extremities. Patient was evaluated in [facility] 4 days ago and was ruled out for possibility of DVT. Patient states he feels very ill and his symptoms have been worsening. Patient states he was prescribed Furosemide without improvement. Patient reports smoking one pack/day for the past 20 years and admits to social drinking. He denies fever, chills, chest pain, shortness of breath, extremity numbness/ weakness or recent trauma/injury to the areas. Present on Admission - Present on Admission Any Indicators Present on Admission: No Past Patient History - Past Medical History & Family History Past Medical History?: Yes - Past Social History Smoking Status: Heavy Smoker > 10 Cigarettes Daily - CARDIAC Hx Hypertension: No - PULMONARY Hx Tuberculosis: No - NEUROLOGICAL Hx Seizures: No - HEMATOLOGICAL/ONCOLOGICAL Hx Human Immunodeficiency Virus (HIV): No - MUSCULOSKELETAL/RHEUMATOLOGICAL Hx Falls: No - GENITOURINARY/GYNECOLOGICAL Hx Sexually Transmitted Disorders: No - PSYCHIATRIC Hx Substance Use: No - SURGICAL HISTORY Hx Surgeries: No Meds Allergies/Adverse Reactions: Allergies Allergy/AdvReac Type Severity Reaction Status Date / Time Penicillins Allergy Verified 03/18/18 18:33 Results - Vital Signs Recent Vital Signs: Last Vital Signs Temp 98.2 F 03/19/18 20:13 Pulse 68 03/19/18 16:44 Resp 20 03/19/18 16:44 BP 125/65 03/19/18 16:44 Pulse Ox 95 03/19/18 16:44 - Labs Result Diagrams: 03/21/18 11:33 03/22/18 06:06 Labs: Laboratory Results - last 24 hr 03/19/18 01:01 Urine Color [place] Urine Clarity Clear Urine pH 5.0 Ur Specific [place] 1.026 Urine Protein Negative Urine Glucose (UA) Normal Urine Ketones Negative Urine Blood Negative Urine Nitrate Negative Urine Bilirubin Negative Urine Urobilinogen 4.0 Ur Leukocyte Esterase Neg Urine WBC (Auto) 1 Urine RBC (Auto) 1 Ur Squamous Epith Cells < 1
[2018-03-20] MEDS: Aztreonam 2 GM in Sodium Chloride 0.9% 100 ML IVPB SCH ×3 (01:30→15:35)
[2018-03-20] MEDS ORDERED: Pneumococcal 23-Valent Vaccine IM ONE (10:00)
[2018-03-20] MEDS: Vancomycin 1 gm/NS 200 ml 1 GM/200 ML BAG IVPB SCH ×2 (10:26→22:13)
[2018-03-20] MEDS: Enoxaparin 40 mg Syringe SC SCH (10:31)
--- NOTE | 2018-03-20 15:20 | CP.PCM.CON ---
History of Present Illness - History of Present Illness History of Present Illness: 37 year old male presents to the ED for evaluation of worsening pain, swelling and burning to his bilateral lower extremities. Patient was evaluated in [facility] 4 days ago and was ruled out for possibility of DVT. Patient states he feels very ill and his symptoms have been worsening. Patient states he was prescribed Furosemide without improvement. Patient reports smoking one pack/day for the past 20 years and admits to social drinking. He denies fever, chills, chest pain, shortness of breath, extremity numbness/ weakness or recent trauma/injury to the areas. REFERRED FOR ID EVAL OF BACTEREMIA/ CELLULITIS ADMITS TO IVDU - Medical History PMH: Bipolar Disorder, Depression, Personality Disorder Denies: Diabetes, Hepatitis, HIV, HTN, Seizures, Sexually Transmitted Disease Surgical History: No Surg Hx Review of Systems - Review of Systems All systems: reviewed and no additional remarkable complaints except - Constitutional Constitutional: As Per HPI - EENT Eyes: absent: As Per HPI, Blind Spots, Blurred Vision, Change in Vision, Decreased Night Vision, Diplopia, Discharge, Dry Eye, Exophthalmos, Floaters, Irritation, Itchy Eyes, Loss of Peripheral Vision, Pain, Photophobia, Requires Corrective Lenses, Sees Flashes, Spots in Vision, Tunnel Vision, Other Visual Disturbances, Loss of Vision, Other Ears: absent: As Per HPI, Decreased Hearing, Ear Discharge, Ear Pain, Tinnitus, Abnormal Hearing, Disequilibrium, Dizziness, Other Nose/Mouth/Throat: absent: As Per HPI, Epistaxis, Nasal Congestion, Nasal Discharge, Nasal Obstruction, Nasal Trauma, Nose Pain, Post Nasal Drip, Sinus Pain, Sinus Pressure, Bleeding Gums, Change in Voice, Dental Pain, Dry Mouth, Dysphagia, Halitosis, Hoarsness, Lip Swelling, Mouth Lesions, Mouth Pain, Odynophagia, Sore Throat, Throat Swelling, Tongue Swelling, Facial Pain, Neck Pain, Neck Mass, Other - Cardiovascular Cardiovascular: absent: As Per HPI, Acrocyanosis, Chest Pain, Chest Pain at Rest , Chest Pain with Activity, Claudication, Diaphoresis, Dyspnea, Dyspnea on Exertion, Edema, Irregular Heart Rhythm, Pain Radiating to Arm/Neck/Jaw, Leg Edema, Leg Ulcers, Lightheadedness, Orthopnea, Palpitations, Paroxysmal Nocturnal Dyspnea, Pedal Edema, Radiating Pain, Rapid Heart Rate, Slow Heart Rate, Syncope, Other - Respiratory Respiratory: absent: As Per HPI, Cough, Dyspnea, Hemoptysis, Dyspnea on Exertion , Wheezing, Snoring, Stridor, Pain on Inspiration, Chest Congestion, Excessive Mucous Production, Change in Mucous Color, Pain with Coughing, Other - Gastrointestinal Gastrointestinal: absent: As Per HPI, Abdominal Pain, Belching, Bloating, Change in Bowel Habits, Change in Stool Character, Coffee Ground Emesis, Constipation, Cramping, Diarrhea, Dyspepsia, Dysphagia, Early Satiety, Excessive Flatus, Fecal Incontinence, Heartburn, Hematemesis, Hematochezia, Loose Stools, Melena, Nausea, Odynophagia, Temesmus, Vomiting, Other - Genitourinary Genitourinary: absent: As Per HPI, Change in Urinary Stream, Difficulty Urinating, Dysuria, Flank Pain, Hematuria, Pyuria, Nocturia, Urinary Incontinence, Urinary Frequency, Urinary Hesitance, Urinary Urgency, Voiding Freq/Small Amts, Freq UTI, Hx Renal/Bladder Calculi, Hx /Renal Surgery, Bladder Distension, Other - Musculoskeletal Musculoskeletal: As Per HPI - Integumentary Integumentary: As Per HPI, Skin Pain, Wounds - Neurological Neurological: absent: As Per HPI, Abnormal Gait, Abnormal Hearing, Abnormal Movements, Abnormal Speech, Behavioral Changes, Burning Sensations, Confusion, Convulsions, Disequilibrium, Dizziness, Numbness, Focal Weakness, Frequent Falls , Headaches, Lack of Coordination, Loss of Vision, Memory Loss, Paresthesias, Radicular Pain, Restless Legs, Sensory Deficit, Syncope, Tingling, Tremor, Vertigo, Weakness, Other Visual Disturbances, Other - Psychiatric Psychiatric: absent: As Per HPI, Abnormal Sleep Pattern, Anhedonia, Anxiety, Auditory Hallucinations, Behavioral Changes, Change in Appetite, Change in Libido, Confusion, Depression, Difficulty Concentrating, Hallucinations, Homicidal Ideation, Hopelessness, Irritability, Memory Loss, Mood Swings, Panic Attacks, Paranoia, Suicidal Ideation, Visual Hallucinations, Tactile Hallucinations, Other - Endocrine Endocrine: absent: As Per HPI, Change in Body Appearance, Change in Libido, Cold Intolorance, Deepening of Voice, Excessive Sweating, Fatigue, Flushing, Heat Intolorance, Increase in Ring/Shoe/Hat Size, Palpitations, Polydipsia, Polyphagia, Polyuria, Other - Hematologic/Lymphatic Hematologic: absent: As Per HPI, Easy Bleeding, Easy Bruising, Lymphadenopathy, Other Past Patient History - Past Medical History & Family History Past Medical History?: Yes - Past Social History Smoking Status: Heavy Smoker > 10 Cigarettes Daily - CARDIAC Hx Hypertension: No - PULMONARY Hx Tuberculosis: No - NEUROLOGICAL Hx Seizures: No - HEMATOLOGICAL/ONCOLOGICAL Hx Human Immunodeficiency Virus (HIV): No - MUSCULOSKELETAL/RHEUMATOLOGICAL Hx Falls: No - GENITOURINARY/GYNECOLOGICAL Hx Sexually Transmitted Disorders: No - PSYCHIATRIC Hx Substance Use: No - SURGICAL HISTORY Hx Surgeries: No Meds Allergies/Adverse Reactions: Allergies Allergy/AdvReac Type Severity Reaction Status Date / Time Penicillins Allergy Verified 03/18/18 18:33 - Medications Medications: Current Medications Acetaminophen (Tylenol 325mg Tab) 650 mg PO Q6 PRN PRN Reason: Pain, moderate (4-7) Last Admin: 03/19/18 15:42 Dose: 650 mg Enoxaparin Sodium (Lovenox) 40 mg SC DAILY [facility] Last Admin: 03/20/18 10:31 Dose: Not Given Aztreonam 2 gm/ Sodium (Chloride) 100 mls @ 200 mls/hr IVPB Q8H NATHALY PRN Reason: Protocol Last Admin: 03/20/18 07:52 Dose: 200 mls/hr Vancomycin/Sodium Chloride (Vancomycin 1 Gm/Ns 200 Ml) 1 gm in 200 mls @ 133 mls/hr IVPB Q12H NATHALY PRN Reason: Protocol Stop: 03/24/18 11:01 Last Admin: 03/20/18 10:26 Dose: 133 mls/hr Lorazepam (Ativan) 2 mg IVP ONCE ONE Stop: 03/20/18 15:14 Morphine Sulfate (Morphine) 2 mg IVP Q6H PRN PRN Reason: Pain, moderate (4-7) Last Admin: 03/20/18 07:34 Dose: 2 mg Physical Exam - Constitutional Appears: Non-toxic, Chronically Ill - Head Exam Head Exam: NORMOCEPHALIC - Eye Exam Eye Exam: absent: Scleral icterus - ENT Exam ENT Exam: Mucous Membranes Dry, Normal External Ear Exam - Neck Exam Neck exam: Negative for: Lymphadenopathy - Respiratory Exam Respiratory Exam: Decreased Breath Sounds, Clear to Auscultation Bilateral - Cardiovascular Exam Cardiovascular Exam: REGULAR RHYTHM, +S1, +S2 - GI/Abdominal Exam GI & Abdominal Exam: Diminished Bowel Sounds, Soft. absent: Tenderness - Rectal Exam Rectal Exam: Deferred - Exam Exam: NORMAL INSPECTION - Extremities Exam Extremities exam: Positive for: pedal edema, tenderness, pedal pulses present. Negative for: calf tenderness - Back Exam Back exam: absent: CVA tenderness (L), CVA tenderness (R), paraspinal tenderness - Neurological Exam Neurological exam: Alert, CN II-XII Intact, Oriented x3, Reflexes Normal - Psychiatric Exam Psychiatric exam: Normal Mood - Skin Skin Exam: Dry, Erythema Results - Vital Signs Recent Vital Signs: Last Vital Signs Temp 98.2 F 03/20/18 07:30 Pulse 83 03/20/18 07:30 Resp 20 03/20/18 07:30 BP 128/71 03/20/18 07:30 Pulse Ox 97 03/20/18 07:30 - Labs Result Diagrams: 03/18/18 20:59 03/18/18 20:59 Labs: Laboratory Results - last 24 hr 03/20/18 07:23 Vancomycin Trough 5.8 Assessment & Plan (1) Cellulitis Status: Acute (2) Drug abuse Status: Acute - Assessment and Plan (Free Text) Assessment: CONT IV RX CHECK MRI LUMBAR SPINE R/O DISCITIS CHECK ECHO IV ANTIBIOTICS HEP PANEL AND HIV
--- NOTE | 2018-03-20 15:25 | CP.PCM.PN ---
Subjective - Date & Time of Evaluation Date of Evaluation: 03/20/18 Time of Evaluation: 15:21 - Subjective Subjective: HOUSE DR NOTE Nursing paged @ ~ 3 pm for signs of withdrawal. Nursing unable to reach Dr. Pulido. Patient found in his room AAOx3. Patient reports increased tremors, nausea, two episodes of vomiting this afternoon. Admits "6 pack to 12 pack of beer daily" denies hard alcohol. LAst use 2-3 days ago. Patient also admits 1-2 bundles of heroin daily. Last use "1-2 days ago." Admits injecting the heroin. Exam: Gen: anxious, pupils dilated, pt found dry heaving CV: tachy, S1,s2 Lungs: CTA b/l Abd: No tenderness to palpation in any quadrants, soft Ext: slight tremor to b/l ext, no tongue fasciculations Plan: Clonidine 0.1 mg PO once Ativan 2mg IV once Further orders per Dr. Pulido Objective - Vital Signs/Intake and Output Vital Signs (last 24 hours): Temp Pulse Resp BP Pulse Ox 98.2 F 83 20 128/71 97 03/20/18 07:30 03/20/18 07:30 03/20/18 07:30 03/20/18 07:30 03/20/18 07:30 Intake and Output: 03/20/18 03/20/18 06:59 18:59 Intake Total 600 Balance 600 - Medications Medications: Current Medications Acetaminophen (Tylenol 325mg Tab) 650 mg PO Q6 PRN PRN Reason: Pain, moderate (4-7) Last Admin: 03/19/18 15:42 Dose: 650 mg Clonidine HCl (Catapres) 0.1 mg PO STAT STA Stop: 03/20/18 15:18 Enoxaparin Sodium (Lovenox) 40 mg SC DAILY NATHALY Last Admin: 03/20/18 10:31 Dose: Not Given Aztreonam 2 gm/ Sodium (Chloride) 100 mls @ 200 mls/hr IVPB Q8H NATHALY PRN Reason: Protocol Last Admin: 03/20/18 07:52 Dose: 200 mls/hr Vancomycin/Sodium Chloride (Vancomycin 1 Gm/Ns 200 Ml) 1 gm in 200 mls @ 133 mls/hr IVPB Q12H NATHALY PRN Reason: Protocol Stop: 03/24/18 11:01 Last Admin: 03/20/18 10:26 Dose: 133 mls/hr Lorazepam (Ativan) 2 mg IVP ONCE ONE Stop: 03/20/18 15:14 Morphine Sulfate (Morphine) 2 mg IVP Q6H PRN PRN Reason: Pain, moderate (4-7) Last Admin: 03/20/18 07:34 Dose: 2 mg - Labs Labs: 03/18/18 20:59 03/18/18 20:59
--- NOTE | 2018-03-20 17:09 | CT ---
PROCEDURE: CT Lumbar Spine without contrast HISTORY: BACK PAIN R/O DIKITIS COMPARISON: None. TECHNIQUE: Axial computed tomography images were obtained of the lumbar spine without the use of intravenous contrast. Coronal and sagittal reformatted images were created and reviewed. Radiation dose: Total exam DLP = 1145.81 mGy-cm. This CT exam was performed using one or more of the following dose reduction techniques: Automated exposure control, adjustment of the mA and/or kV according to patient size, and/or use of iterative reconstruction technique. FINDINGS: VERTEBRAE: The vertebral bodies are maintained in height. The transverse processes and posterior elements are intact. Normal vertebral alignment is maintained. DISCS/SPINAL CANAL/NEURAL FORAMINA: There is mild disc bulge at the L4-5 intervertebral disc space level. There is no evidence of disc herniation. No disc bulge or herniation is seen elsewhere. There is no central spinal stenosis. There is moderate bilateral neural foraminal stenosis at L4-5 as a result of disc bulge and bilateral degenerative facet arthropathy. PARASPINAL SOFT TISSUES: Unremarkable. OTHER FINDINGS: None. IMPRESSION: Disc bulge at L4-5 with moderate bilateral L4-5 neural foraminal stenosis. No evidence of discitis or osteomyelitis. Please note that CT is a relatively insensitive method of examination for discitis and osteomyelitis and if there is continued clinical suspicion then evaluation with gadolinium enhanced magnetic resonance imaging is advised.
[2018-03-21] MEDS: Aztreonam 2 GM in Sodium Chloride 0.9% 100 ML IVPB SCH ×4 (01:12→23:52)
[2018-03-21 07:51] LABS: HEPATITIS B SURFACE AG Negative (NEGATIVE)
[2018-03-21 07:57] LABS: HEPATITIS A IGM NEGATIVE (NEGATIVE); HEPATITIS B CORE AB NEGATIVE (NEGATIVE)
[2018-03-21 08:09] LABS: HEPATITIS C ANTIBODY NEGATIVE (NEGATIVE)
[2018-03-21] MEDS: Enoxaparin 40 mg Syringe SC SCH (09:10)
--- NOTE | 2018-03-21 10:44 | PCM.PSYCH ---
Initial Psychiatric Evaluation - Initial Psychiatric Evaluation Type of Admission: Voluntary Legal Status: Capacity Chief Complaint (in patient's own words): I relapsed on drinking and heroin.' History of Present Illness and Precipitating Events: Patient is a 37 year old CM with a history of depression, alcohol and heroin abuse, was admitted on the medical floor for cellulites. Today pt was consulted because of depressed mood and withdrawal symptoms. Pt was just discharged form [facility] 2 months ago. As per him, he relapsed on heroin and drinking and became partial compliant with the meds. He reports of injecting 20-30 bags of heroin daily. He also report of drinking 12 pack of 12 oz beer daily. Last abuse was 2 days ago. Patient reports anxiety and irritability and reports withdrawal symptoms i.e., sweating, headaches, anxiety, back and joint pains, nausea and abdominal cramps. He reports depressed mood, but denies any suicidal ideation or homicidal ideation. Patient reports poor sleep but denies any manic symptoms. He denies any auditory or visual hallucinations or any psychotic symptoms. Current Medications: Active Medications Generic Name Dose Route Start Last Admin Trade Name Peeweeq PRN Reason Stop Dose Admin Acetaminophen 650 mg 03/19/18 00:32 03/19/18 15:42 Tylenol 325mg Tab PO 650 mg Q6 PRN Administration Pain, moderate (4-7) Enoxaparin Sodium 40 mg 03/19/18 10:00 03/20/18 10:31 Lovenox SC Not Given DAILY NATHALY Aztreonam 2 gm/ Sodium 100 mls @ 200 mls/hr 03/19/18 00:30 03/21/18 01:12 Chloride IVPB 200 mls/hr Q8H NATHALY Administration Protocol Vancomycin/Sodium Chloride 1 gm in 200 mls @ 133 mls/hr 03/19/18 11:00 22:13 Vancomycin 1 Gm/Ns 200 Ml IVPB 03/24/18 11:01 133 mls/hr Q12H NATHALY Administration Protocol Morphine Sulfate 2 mg 03/19/18 10:10 03/21/18 07:45 Morphine IVP 2 mg Q6H PRN Administration Pain, moderate (4-7) Past Psychiatric History - Past Psychiatric History Previous Treatment History: Inpatient Pertinent Medical Hx (Current Medical&Sleep Prob, Allergies): Allergies Allergy/AdvReac Type Severity Reaction Status Date / Time Penicillins Allergy Verified 03/18/18 18:33 FLUoxetine [Prozac] 40 mg PO DAILY #30 cap 01/23/18 Gabapentin [Neurontin] 300 mg PO TID #90 cap 01/23/18 traZODone [Desyrel] 100 mg PO HS PRN #30 tab 01/23/18 Duloxetine HCl [Duloxetine] 60 mg PO DAILY 03/19/18 Furosemide [Lasix] 20 mg PO MDD x 5days 03/19/18 Hydroxyzine HCl 25 mg PO DAILY PRN 03/19/18 predniSONE [predniSONE Tab] 20 mg PO BID 03/19/18 Review of Systems - Review of Systems All systems: reviewed and no additional remarkable complaints except - Psychiatric Psychiatric: Anxiety, Irritability. absent: Suicidal Ideation Mental Status Examination - Personal Presentation Personal Presentation: Looks stated age - Affect Affect: Broad - Motor Activity Motor Activity: Calm - Reliability in Providing Information Reliability in Providing Information: Fair - Speech Speech: Organized - Mood Mood: Anxious - Formal Thought Process Formal Thought Process: No Impairment - Obsessions/Compulsions Obsessions: No Compulsions: No - Cognitive Functions Orientation: Person, Place, Situation, Time Sensorium: Alert Attention/Concentration: Attentive Abstract Thinking: [place] Estimate of Intelligence: Below average Judgement: Imparied, as evidence by: Poor judgement, Intact, as evidence by: Insight regarding need for hospitalization - Risk Risk: Withdrawal, Diminished functioning - Limitations Limitations: Living alone DSM 5 DX - DSM 5 DSM 5 Diagnosis: Alcohol use disorder severe Alcohol withdrawal uncomplicated Opioid use disorder severe Opioid withdrawal Major depressive disorder recurrent moderate - Recommended/Plan of Treatment Treatment Recommendations and Plan of Treatment: Alcohol use disorder severe Psychoeducation Supportive therapy, individual therapy Use OK for abstinence Alcohol withdrawal uncomplicated Psychoeducation Supportive therapy, individual therapy Ativan when necessary Ativan taper Folic acid/thiamine/multivitamin Opioid use disorder severe Psychoeducation Supportive therapy, individual therapy Use OK for abstinence Opioid withdrawal Psychoeducation Supportive therapy, individual therapy Clonidine when necessary Methadone taper Major depressive disorder recurrent moderate Psychoeducation Supportive therapy, individual therapy Trazodone 100 mg by mouth daily at bedtime Gabapentin 300 mg po TID Duloxetine 60 mg PO Daily - Smoking Cessation Smoking Cessation Initiated: No
[2018-03-21] MEDS ORDERED: Aluminum Hydroxide/Magnesium Hydroxide Susp (30 mL) PO PRN (10:45)
[2018-03-21] MEDS: Multiple Vitamins Tab PO SCH (11:32)
[2018-03-21 11:45] LABS: BASO % 0.5 % (0.0-2.0); EOS % 0.1 % (0.0-4.0); HEMOGLOBIN 13.5 g/dL (12.0-18.0); LYMPH % 14.6 % (20.0-40.0); MEAN CELL VOLUME 90.8 fL (80.0-94.0); MEAN CORPUSCULAR HEMOGLOBIN 32.1 pg (27.0-31.0); MEAN CORPUSCULAR HGB CONC 35.3 g/dL (33.0-37.0); MEAN PLATELET VOLUME 8.2 fL (7.2-11.7); MONO # 0.8 K/uL (0.0-0.8); MONO % 11.6 % (0.0-10.0); NEUT # 5.2 K/uL (1.8-7.0); NEUT % 73.2 % (50.0-75.0); NRBC % 0.1 % (0.0-2.0); RBC 4.21 Mil/uL (4.40-5.90); RED CELL DISTRIBUTION WIDTH 13.3 % (11.5-14.5); WHITE BLOOD COUNT 7.1 K/uL (4.8-10.8)
[2018-03-21] MEDS: Vancomycin 1 gm/NS 200 ml 1 GM/200 ML BAG IVPB SCH ×2 (11:45→22:02)
--- NOTE | 2018-03-21 11:50 | CP.PCM.PN ---
Subjective - Date & Time of Evaluation Date of Evaluation: 03/21/18 Time of Evaluation: 09:00 - Subjective Subjective: started on Methadone iv rx renewed consider GI eval Objective - Vital Signs/Intake and Output Vital Signs (last 24 hours): Temp Pulse Resp BP Pulse Ox 98.6 F 55 L 18 118/62 99 03/21/18 07:30 03/21/18 07:30 03/21/18 07:30 03/21/18 07:30 03/21/18 07:30 Intake and Output: 03/21/18 03/21/18 06:59 18:59 Output Total 300 Balance -300 - Medications Medications: Current Medications Acetaminophen (Tylenol 325mg Tab) 650 mg PO Q6 PRN PRN Reason: Pain, moderate (4-7) Last Admin: 03/19/18 15:42 Dose: 650 mg Al Hydrox/Mg Hydrox/Simethicone (Maalox 30 Ml) 30 ml PO TID PRN PRN Reason: Indigestion / Heartburn Duloxetine HCl (Cymbalta) 60 mg PO DAILY [facility] Last Admin: 03/21/18 11:34 Dose: 60 mg Enoxaparin Sodium (Lovenox) 40 mg SC DAILY [facility] Last Admin: 03/21/18 09:10 Dose: Not Given Folic Acid (Folic Acid) 1 mg PO DAILY [facility] Last Admin: 03/21/18 11:32 Dose: 1 mg Gabapentin (Neurontin) 300 mg PO TID [facility] Aztreonam 2 gm/ Sodium (Chloride) 100 mls @ 200 mls/hr IVPB Q8H NATHALY PRN Reason: Protocol Last Admin: 03/21/18 09:10 Dose: Not Given Vancomycin/Sodium Chloride (Vancomycin 1 Gm/Ns 200 Ml) 1 gm in 200 mls @ 133 mls/hr IVPB Q12H NATHALY PRN Reason: Protocol Stop: 03/24/18 11:01 Last Admin: 03/21/18 11:45 Dose: 133 mls/hr Loperamide HCl (Imodium) 2 mg PO Q8 PRN PRN Reason: Diarrhea Last Admin: 03/21/18 11:33 Dose: 2 mg Lorazepam (Ativan) 1 mg PO Q6 PRN PRN Reason: Anxiety Lorazepam (Ativan) 1 mg PO Q6 NATHALY PRN Reason: Taper Stop: 03/25/18 10:44 Last Admin: 03/21/18 11:32 Dose: 1 mg Multivitamins (Hexavitamin) 1 tab PO DAILY [facility] Last Admin: 03/21/18 11:32 Dose: 1 tab Ondansetron HCl (Zofran Tab) 4 mg PO Q8 PRN PRN Reason: Nausea/Vomiting Thiamine HCl (Vitamin B1 Tab) 100 mg PO DAILY [facility]Y Last Admin: 03/21/18 11:32 Dose: 100 mg Trazodone HCl (Desyrel) 100 mg PO HS PRN PRN Reason: Insomnia - Labs Labs: 03/18/18 20:59 03/18/18 20:59 - Constitutional Appears: Non-toxic, Chronically Ill - Head Exam Head Exam: NORMOCEPHALIC - Eye Exam Eye Exam: absent: Scleral icterus - ENT Exam ENT Exam: Normal External Ear Exam - Neck Exam Neck Exam: absent: Lymphadenopathy - Respiratory Exam Respiratory Exam: Decreased Breath Sounds - Cardiovascular Exam Cardiovascular Exam: REGULAR RHYTHM - GI/Abdominal Exam GI & Abdominal Exam: Distended, Soft - Neurological Exam Neurological Exam: Alert, Awake - Psychiatric Exam Psychiatric exam: Depressed - Skin Skin Exam: Erythema Assessment and Plan (1) Cellulitis Status: Acute (2) Drug abuse Status: Acute - Assessment and Plan (Free Text) Plan: cont iv rx
[2018-03-21 11:58] LABS: ALB/GLOB RATIO 1.3 (1.0-2.1); ALBUMIN 3.7 g/dL (3.5-5.0); ALT/SGPT 137 U/L (21-72); AST/SGOT 130 U/L (17-59); BLOOD UREA NITROGEN 9 mg/dL (9-20); CALCIUM 9.1 mg/dl (8.6-10.4); GFR AFRICAN-AMERICAN > 60; GFR NON-AFRICAN AMERICAN > 60
[2018-03-21] MEDS: Potassium Chloride 20 mEq ER Tab PO SCH (13:20)
--- NOTE | 2018-03-21 16:47 | CARD ---
APPROVED REPORT EKG Measurement Heart [id number] <Conclusion> Normal sinus rhythm Normal ECG
--- NOTE | 2018-03-22 00:28 | CP.PCM.PN ---
Subjective - Date & Time of Evaluation Date of Evaluation: 03/21/18 Time of Evaluation: 19:00 - Subjective Subjective: Pt seen and evaluated at bedside Objective - Vital Signs/Intake and Output Vital Signs (last 24 hours): Temp Pulse Resp BP Pulse Ox 97.9 F 85 20 123/75 98 03/21/18 15:48 03/21/18 15:48 03/21/18 15:48 03/21/18 15:48 03/21/18 15:48 Intake and Output: 03/21/18 03/22/18 18:59 06:59 Intake Total 1400 Balance 1400 - Medications Medications: Current Medications Acetaminophen (Tylenol 325mg Tab) 650 mg PO Q6 PRN PRN Reason: Pain, moderate (4-7) Last Admin: 03/19/18 15:42 Dose: 650 mg Al Hydrox/Mg Hydrox/Simethicone (Maalox 30 Ml) 30 ml PO TID PRN PRN Reason: Indigestion / Heartburn Duloxetine HCl (Cymbalta) 60 mg PO DAILY [facility] Last Admin: 03/21/18 11:34 Dose: 60 mg Enoxaparin Sodium (Lovenox) 40 mg SC DAILY [facility] Last Admin: 03/21/18 09:10 Dose: Not Given Folic Acid (Folic Acid) 1 mg PO DAILY [facility] Last Admin: 03/21/18 11:32 Dose: 1 mg Gabapentin (Neurontin) 300 mg PO TID [facility] Last Admin: 03/21/18 17:39 Dose: 300 mg Aztreonam 2 gm/ Sodium (Chloride) 100 mls @ 200 mls/hr IVPB Q8H NATHALY PRN Reason: Protocol Last Admin: 03/21/18 23:52 Dose: 200 mls/hr Vancomycin/Sodium Chloride (Vancomycin 1 Gm/Ns 200 Ml) 1 gm in 200 mls @ 133 mls/hr IVPB Q12H NATHALY PRN Reason: Protocol Stop: 03/24/18 11:01 Last Admin: 03/21/18 22:02 Dose: 133 mls/hr Loperamide HCl (Imodium) 2 mg PO Q8 PRN PRN Reason: Diarrhea Last Admin: 03/21/18 11:33 Dose: 2 mg Lorazepam (Ativan) 1 mg PO Q6 PRN PRN Reason: Anxiety Lorazepam (Ativan) 1 mg PO Q6 NATHALY PRN Reason: Taper Stop: 03/25/18 10:44 Last Admin: 03/21/18 23:53 Dose: 1 mg Methadone HCl (Methadone) 15 mg PO DAILY [facility]ALY PRN Reason: Taper Stop: 03/25/18 09:59 Multivitamins (Hexavitamin) 1 tab PO DAILY [facility] Last Admin: 03/21/18 11:32 Dose: 1 tab Ondansetron HCl (Zofran Tab) 4 mg PO Q8 PRN PRN Reason: Nausea/Vomiting Potassium Chloride (K-Dur 20 Meq Er Tab) 20 meq PO DAILY NATHALY Stop: 03/23/18 13:16 Last Admin: 03/21/18 13:20 Dose: 20 meq Thiamine HCl (Vitamin B1 Tab) 100 mg PO DAILY [facility] Last Admin: 03/21/18 11:32 Dose: 100 mg Trazodone HCl (Desyrel) 100 mg PO HS PRN PRN Reason: Insomnia - Labs Labs: 03/21/18 11:33 03/21/18 11:33
--- NOTE | 2018-03-22 07:20 | CP.PCM.PN ---
Subjective - Date & Time of Evaluation Date of Evaluation: 03/20/18 Time of Evaluation: 14:00 - Subjective Subjective: 37 year old male presents to the ED for evaluation of worsening pain, swelling and burning to his bilateral lower extremities. Patient was evaluated in [facility] 4 days ago and was ruled out for possibility of DVT. Patient states he feels very ill and his symptoms have been worsening. Patient states he was prescribed Furosemide without improvement. Patient reports smoking one pack/day for the past 20 years and admits to social drinking. He denies fever, chills, chest pain, shortness of breath, extremity numbness/ weakness or recent trauma/injury to the areas. Objective - Vital Signs/Intake and Output Vital Signs (last 24 hours): Temp Pulse Resp BP Pulse Ox 98.5 F 48 L 20 119/63 99 03/21/18 23:25 03/21/18 23:25 03/21/18 23:25 03/21/18 23:25 03/21/18 23:25 Intake and Output: 03/22/18 03/22/18 06:59 18:59 Intake Total 1400 Balance 1400 - Medications Medications: Current Medications Acetaminophen (Tylenol 325mg Tab) 650 mg PO Q6 PRN PRN Reason: Pain, moderate (4-7) Last Admin: 03/19/18 15:42 Dose: 650 mg Al Hydrox/Mg Hydrox/Simethicone (Maalox 30 Ml) 30 ml PO TID PRN PRN Reason: Indigestion / Heartburn Duloxetine HCl (Cymbalta) 60 mg PO DAILY [facility] Last Admin: 03/21/18 11:34 Dose: 60 mg Enoxaparin Sodium (Lovenox) 40 mg SC DAILY [facility] Last Admin: 03/21/18 09:10 Dose: Not Given Folic Acid (Folic Acid) 1 mg PO DAILY [facility] Last Admin: 03/21/18 11:32 Dose: 1 mg Gabapentin (Neurontin) 300 mg PO TID [facility] Last Admin: 03/21/18 17:39 Dose: 300 mg Aztreonam 2 gm/ Sodium (Chloride) 100 mls @ 200 mls/hr IVPB Q8H NATHALY PRN Reason: Protocol Last Admin: 03/21/18 23:52 Dose: 200 mls/hr Vancomycin/Sodium Chloride (Vancomycin 1 Gm/Ns 200 Ml) 1 gm in 200 mls @ 133 mls/hr IVPB Q12H NATHALY PRN Reason: Protocol Stop: 03/24/18 11:01 Last Admin: 03/21/18 22:02 Dose: 133 mls/hr Loperamide HCl (Imodium) 2 mg PO Q8 PRN PRN Reason: Diarrhea Last Admin: 03/21/18 11:33 Dose: 2 mg Lorazepam (Ativan) 1 mg PO Q6 PRN PRN Reason: Anxiety Last Admin: 03/22/18 04:39 Dose: 1 mg Lorazepam (Ativan) 1 mg PO Q6 NATHALY PRN Reason: Taper Stop: 03/25/18 10:44 Last Admin: 03/22/18 06:36 Dose: 1 mg Methadone HCl (Methadone) 15 mg PO DAILY N[facility]ALY PRN Reason: Taper Stop: 03/25/18 09:59 Multivitamins (Hexavitamin) 1 tab PO DAILY [facility] Last Admin: 03/21/18 11:32 Dose: 1 tab Ondansetron HCl (Zofran Tab) 4 mg PO Q8 PRN PRN Reason: Nausea/Vomiting Potassium Chloride (K-Dur 20 Meq Er Tab) 20 meq PO DAILY [facility] Stop: 03/23/18 13:16 Last Admin: 03/21/18 13:20 Dose: 20 meq Thiamine HCl (Vitamin B1 Tab) 100 mg PO DAILY [facility] Last Admin: 03/21/18 11:32 Dose: 100 mg Trazodone HCl (Desyrel) 100 mg PO HS PRN PRN Reason: Insomnia - Labs Labs: 03/21/18 11:33 03/21/18 11:33 - Constitutional Appears: Well, Non-toxic - Head Exam Head Exam: ATRAUMATIC, NORMAL INSPECTION, NORMOCEPHALIC - Eye Exam Eye Exam: EOMI, Normal appearance, PERRL Pupil Exam: NORMAL ACCOMODATION - ENT Exam ENT Exam: Mucous Membranes Moist, Normal Exam - Neck Exam Neck Exam: Full ROM, Normal Inspection - Respiratory Exam Respiratory Exam: Clear to Ausculation Bilateral, NORMAL BREATHING PATTERN - Cardiovascular Exam Cardiovascular Exam: REGULAR RHYTHM - GI/Abdominal Exam GI & Abdominal Exam: Normal Bowel Sounds Assessment and Plan (1) Cellulitis Status: Acute (2) Depressed Status: Acute (3) Drug abuse Status: Acute (4) Major depressive disorder, recurrent severe without psychotic features Status: Acute - Assessment and Plan (Free Text) Assessment: 37 year old male presents to the ED for evaluation of worsening pain, swelling and burning to his bilateral lower extremities. Patient was evaluated in [facility] 4 days ago and was ruled out for possibility of DVT. Patient states he feels very ill and his symptoms have been worsening. Patient states he was prescribed Furosemide without improvement. Patient reports smoking one pack/day for the past 20 years and admits to social drinking. He denies fever, chills, chest pain, shortness of breath, extremity numbness/ weakness or recent trauma/injury to the areas. Plan: CONT IV RX CHECK MRI LUMBAR SPINE R/O DISCITIS CHECK ECHO IV ANTIBIOTICS HEP PANEL AND HIV
[2018-03-22 07:43] LABS: BLOOD UREA NITROGEN 11 mg/dL (9-20); CALCIUM 8.8 mg/dl (8.6-10.4); GFR AFRICAN-AMERICAN > 60; GFR NON-AFRICAN AMERICAN > 60
[2018-03-22] MEDS: Aztreonam 2 GM in Sodium Chloride 0.9% 100 ML IVPB SCH ×3 (08:06→23:35)
[2018-03-22] MEDS: Potassium Chloride 20 mEq ER Tab PO SCH (09:12)
[2018-03-22] MEDS: Multiple Vitamins Tab PO SCH (09:12)
[2018-03-22] MEDS: Enoxaparin 40 mg Syringe SC SCH (09:12)
[2018-03-22] MEDS: Vancomycin 1 gm/NS 200 ml 1 GM/200 ML BAG IVPB SCH ×2 (11:39→22:21)
[2018-03-22 16:11] VITALS: RESP 20
--- NOTE | 2018-03-23 07:47 | CP.PCM.PN ---
Subjective - Date & Time of Evaluation Date of Evaluation: 03/22/18 Time of Evaluation: 18:00 - Subjective Subjective: Pt seen and examined by me Objective - Vital Signs/Intake and Output Vital Signs (last 24 hours): Temp Pulse Resp BP Pulse Ox 98.7 F 60 20 113/72 96 03/23/18 07:37 03/23/18 07:37 03/23/18 07:37 03/23/18 07:37 03/23/18 07:37 - Medications Medications: Current Medications Acetaminophen (Tylenol 325mg Tab) 650 mg PO Q6 PRN PRN Reason: Pain, moderate (4-7) Last Admin: 03/19/18 15:42 Dose: 650 mg Al Hydrox/Mg Hydrox/Simethicone (Maalox 30 Ml) 30 ml PO TID PRN PRN Reason: Indigestion / Heartburn Duloxetine HCl (Cymbalta) 60 mg PO DAILY [facility] Last Admin: 03/22/18 09:12 Dose: 60 mg Enoxaparin Sodium (Lovenox) 40 mg SC DAILY [facility] Last Admin: 03/22/18 09:12 Dose: Not Given Folic Acid (Folic Acid) 1 mg PO DAILY [facility] Last Admin: 03/22/18 09:11 Dose: 1 mg Gabapentin (Neurontin) 300 mg PO TID [facility] Last Admin: 03/22/18 17:33 Dose: 300 mg Aztreonam 2 gm/ Sodium (Chloride) 100 mls @ 200 mls/hr IVPB Q8H NATHALY PRN Reason: Protocol Last Admin: 03/22/18 23:35 Dose: 200 mls/hr Vancomycin/Sodium Chloride (Vancomycin 1 Gm/Ns 200 Ml) 1 gm in 200 mls @ 133 mls/hr IVPB Q12H NATHALY PRN Reason: Protocol Stop: 03/24/18 11:01 Last Admin: 03/22/18 22:21 Dose: 133 mls/hr Loperamide HCl (Imodium) 2 mg PO Q8 PRN PRN Reason: Diarrhea Last Admin: 03/22/18 09:21 Dose: 2 mg Lorazepam (Ativan) 1 mg PO Q6 PRN PRN Reason: Anxiety Last Admin: 03/22/18 04:39 Dose: 1 mg Lorazepam (Ativan) 1 mg PO Q6 NATHALY PRN Reason: Taper Stop: 03/25/18 10:44 Last Admin: 03/23/18 05:30 Dose: 1 mg Methadone HCl (Methadone) 15 mg PO DAILY [facility] PRN Reason: Taper Stop: 03/25/18 09:59 Last Admin: 03/22/18 09:11 Dose: 15 mg Multivitamins (Hexavitamin) 1 tab PO DAILY [facility] Last Admin: 03/22/18 09:12 Dose: 1 tab Nicotine (Nicoderm Cq) 1 patch TD DAILY [facility] Last Admin: 03/22/18 11:38 Dose: 1 patch Ondansetron HCl (Zofran Tab) 4 mg PO Q8 PRN PRN Reason: Nausea/Vomiting Potassium Chloride (K-Dur 20 Meq Er Tab) 20 meq PO DAILY [facility] Stop: 03/23/18 13:16 Last Admin: 03/22/18 09:12 Dose: 20 meq Thiamine HCl (Vitamin B1 Tab) 100 mg PO DAILY [facility] Last Admin: 03/22/18 09:11 Dose: 100 mg Trazodone HCl (Desyrel) 100 mg PO HS PRN PRN Reason: Insomnia - Labs Labs: 03/21/18 11:33 03/22/18 06:06
[2018-03-23] MEDS: Aztreonam 2 GM in Sodium Chloride 0.9% 100 ML IVPB SCH ×2 (09:16→16:30)
[2018-03-23] MEDS: Multiple Vitamins Tab PO SCH (09:23)
[2018-03-23] MEDS: Potassium Chloride 20 mEq ER Tab PO SCH (09:23)
[2018-03-23] MEDS: Enoxaparin 40 mg Syringe SC SCH (09:36)
[2018-03-23] MEDS: Vancomycin 1 gm/NS 200 ml 1 GM/200 ML BAG IVPB SCH ×2 (10:37→22:16)
--- NOTE | 2018-03-23 17:54 | CP.PCM.PN ---
Subjective - Date & Time of Evaluation Date of Evaluation: 03/23/18 Time of Evaluation: 08:00 - Subjective Subjective: iv rx in progress cellulitis less Objective - Vital Signs/Intake and Output Vital Signs (last 24 hours): Temp Pulse Resp BP Pulse Ox 98 F 58 L 20 131/74 97 03/23/18 16:00 03/23/18 16:00 03/23/18 16:00 03/23/18 16:00 03/23/18 16:00 Intake and Output: 03/23/18 03/23/18 06:59 18:59 Intake Total 450 Balance 450 - Medications Medications: Current Medications Acetaminophen (Tylenol 325mg Tab) 650 mg PO Q6 PRN PRN Reason: Pain, moderate (4-7) Last Admin: 03/19/18 15:42 Dose: 650 mg Al Hydrox/Mg Hydrox/Simethicone (Maalox 30 Ml) 30 ml PO TID PRN PRN Reason: Indigestion / Heartburn Duloxetine HCl (Cymbalta) 60 mg PO DAILY [facility] Last Admin: 03/23/18 09:23 Dose: 60 mg Enoxaparin Sodium (Lovenox) 40 mg SC DAILY [facility] Last Admin: 03/23/18 09:36 Dose: Not Given Folic Acid (Folic Acid) 1 mg PO DAILY [facility] Last Admin: 03/23/18 09:23 Dose: 1 mg Gabapentin (Neurontin) 300 mg PO TID [facility] Last Admin: 03/23/18 17:45 Dose: 300 mg Aztreonam 2 gm/ Sodium (Chloride) 100 mls @ 200 mls/hr IVPB Q8H NATHALY PRN Reason: Protocol Last Admin: 03/23/18 16:30 Dose: 200 mls/hr Vancomycin/Sodium Chloride (Vancomycin 1 Gm/Ns 200 Ml) 1 gm in 200 mls @ 133 mls/hr IVPB Q12H NATHALY PRN Reason: Protocol Stop: 03/24/18 11:01 Last Admin: 03/23/18 10:37 Dose: 133 mls/hr Loperamide HCl (Imodium) 2 mg PO Q8 PRN PRN Reason: Diarrhea Last Admin: 03/22/18 09:21 Dose: 2 mg Lorazepam (Ativan) 1 mg PO Q6 PRN PRN Reason: Anxiety Last Admin: 03/22/18 04:39 Dose: 1 mg Lorazepam (Ativan) 1 mg PO Q8 NATHALY PRN Reason: Taper Stop: 03/25/18 10:44 Last Admin: 03/23/18 14:07 Dose: 1 mg Methadone HCl (Methadone) 10 mg PO DAILY [facility] PRN Reason: Taper Stop: 03/25/18 09:59 Multivitamins (Hexavitamin) 1 tab PO DAILY [facility] Last Admin: 03/23/18 09:23 Dose: 1 tab Nicotine (Nicoderm Cq) 1 patch TD DAILY [facility] Last Admin: 03/23/18 09:40 Dose: 1 patch Ondansetron HCl (Zofran Tab) 4 mg PO Q8 PRN PRN Reason: Nausea/Vomiting Thiamine HCl (Vitamin B1 Tab) 100 mg PO DAILY [facility] Last Admin: 03/23/18 09:23 Dose: 100 mg Trazodone HCl (Desyrel) 100 mg PO HS PRN PRN Reason: Insomnia - Labs Labs: 03/21/18 11:33 03/22/18 06:06 - Constitutional Appears: Well - Head Exam Head Exam: ATRAUMATIC, NORMAL INSPECTION, NORMOCEPHALIC - Eye Exam Eye Exam: EOMI, Normal appearance, PERRL Pupil Exam: NORMAL ACCOMODATION, PERRL - ENT Exam ENT Exam: Mucous Membranes Moist, Normal Exam - Neck Exam Neck Exam: Full ROM, Normal Inspection. absent: Lymphadenopathy - Respiratory Exam Respiratory Exam: Clear to Ausculation Bilateral, NORMAL BREATHING PATTERN - Cardiovascular Exam Cardiovascular Exam: REGULAR RHYTHM, +S1, +S2. absent: Murmur - GI/Abdominal Exam GI & Abdominal Exam: Soft, Normal Bowel Sounds. absent: Tenderness - Rectal Exam Rectal Exam: NORMAL INSPECTION - Exam Exam: Circumcision, NORMAL INSPECTION Speculum exam: NORMAL SPECULUM EXAM - Extremities Exam Extremities Exam: Full ROM, Normal Capillary Refill, Normal Inspection. absent : Joint Swelling, Pedal Edema - Back Exam Back Exam: NORMAL INSPECTION - Neurological Exam Neurological Exam: Alert, Awake, CN II-XII Intact, Normal Gait, Oriented x3 - Psychiatric Exam Psychiatric exam: Normal Affect, Normal Mood - Skin Skin Exam: Dry, Intact, Normal Color, Warm Assessment and Plan (1) Cellulitis Status: Acute (2) Drug abuse Status: Acute - Assessment and Plan (Free Text) Assessment: cont iv rx for 7 days will repeat blood cultures
--- NOTE | 2018-03-23 23:38 | CP.PCM.PN ---
Subjective - Date & Time of Evaluation Date of Evaluation: 03/23/18 Time of Evaluation: 19:00 - Subjective Subjective: Pt seen & evalauted at bedside, cont iv rx for 7 days will repeat blood cultures Objective - Vital Signs/Intake and Output Vital Signs (last 24 hours): Temp Pulse Resp BP Pulse Ox 98 F 58 L 20 131/74 97 03/23/18 16:00 03/23/18 16:00 03/23/18 16:00 03/23/18 16:00 03/23/18 16:00 Intake and Output: 03/23/18 03/24/18 18:59 06:59 Intake Total 450 Balance 450 - Medications Medications: Current Medications Acetaminophen (Tylenol 325mg Tab) 650 mg PO Q6 PRN PRN Reason: Pain, moderate (4-7) Last Admin: 03/19/18 15:42 Dose: 650 mg Al Hydrox/Mg Hydrox/Simethicone (Maalox 30 Ml) 30 ml PO TID PRN PRN Reason: Indigestion / Heartburn Duloxetine HCl (Cymbalta) 60 mg PO DAILY [facility] Last Admin: 03/23/18 09:23 Dose: 60 mg Enoxaparin Sodium (Lovenox) 40 mg SC DAILY [facility] Last Admin: 03/23/18 09:36 Dose: Not Given Folic Acid (Folic Acid) 1 mg PO DAILY [facility] Last Admin: 03/23/18 09:23 Dose: 1 mg Gabapentin (Neurontin) 300 mg PO TID [facility] Last Admin: 03/23/18 17:45 Dose: 300 mg Aztreonam 2 gm/ Sodium (Chloride) 100 mls @ 200 mls/hr IVPB Q8H NATHALY PRN Reason: Protocol Last Admin: 03/23/18 16:30 Dose: 200 mls/hr Vancomycin/Sodium Chloride (Vancomycin 1 Gm/Ns 200 Ml) 1 gm in 200 mls @ 133 mls/hr IVPB Q12H NATHALY PRN Reason: Protocol Stop: 03/24/18 11:01 Last Admin: 03/23/18 22:16 Dose: 133 mls/hr Loperamide HCl (Imodium) 2 mg PO Q8 PRN PRN Reason: Diarrhea Last Admin: 03/22/18 09:21 Dose: 2 mg Lorazepam (Ativan) 1 mg PO Q6 PRN PRN Reason: Anxiety Last Admin: 03/22/18 04:39 Dose: 1 mg Lorazepam (Ativan) 1 mg PO Q8 NATHALY PRN Reason: Taper Stop: 03/25/18 10:44 Last Admin: 03/23/18 21:38 Dose: 1 mg Methadone HCl (Methadone) 10 mg PO DAILY [facility] PRN Reason: Taper Stop: 03/25/18 09:59 Multivitamins (Hexavitamin) 1 tab PO DAILY [facility] Last Admin: 03/23/18 09:23 Dose: 1 tab Nicotine (Nicoderm Cq) 1 patch TD DAILY [facility] Last Admin: 03/23/18 09:40 Dose: 1 patch Ondansetron HCl (Zofran Tab) 4 mg PO Q8 PRN PRN Reason: Nausea/Vomiting Thiamine HCl (Vitamin B1 Tab) 100 mg PO DAILY [facility] Last Admin: 03/23/18 09:23 Dose: 100 mg Trazodone HCl (Desyrel) 100 mg PO HS PRN PRN Reason: Insomnia - Labs Labs: 03/21/18 11:33 03/22/18 06:06 - Constitutional Appears: No Acute Distress - Head Exam Head Exam: ATRAUMATIC, NORMAL INSPECTION, NORMOCEPHALIC - Eye Exam Eye Exam: EOMI, Normal appearance, PERRL Pupil Exam: NORMAL ACCOMODATION, PERRL - Respiratory Exam Respiratory Exam: Clear to Ausculation Bilateral, NORMAL BREATHING PATTERN - Cardiovascular Exam Cardiovascular Exam: REGULAR RHYTHM, +S1, +S2. absent: Murmur - GI/Abdominal Exam GI & Abdominal Exam: Soft, Normal Bowel Sounds. absent: Tenderness Assessment and Plan (1) Cellulitis Status: Acute (2) Depressed Status: Acute (3) Drug abuse Status: Acute (4) Major depressive disorder, recurrent severe without psychotic features Status: Acute
[2018-03-24] MEDS: Aztreonam 2 GM in Sodium Chloride 0.9% 100 ML IVPB SCH ×3 (00:23→19:00)
[2018-03-24] MEDS: Multiple Vitamins Tab PO SCH (10:42)
[2018-03-24] MEDS: Enoxaparin 40 mg Syringe SC SCH (10:50)
[2018-03-24] MEDS: Vancomycin 1 gm/NS 200 ml 1 GM/200 ML BAG IVPB SCH (13:50)
[2018-03-25 00:31] VITALS: O2SAT 96
[2018-03-25] MEDS: Aztreonam 2 GM in Sodium Chloride 0.9% 100 ML IVPB SCH ×2 (02:03→11:54)
[2018-03-25 07:55] VITALS: BP 112/71; PULSE 73; TEMP 98.1
[2018-03-25 08:36] LABS: BLOOD UREA NITROGEN 14 mg/dL (9-20); CALCIUM 9.8 mg/dl (8.6-10.4); GFR AFRICAN-AMERICAN > 60; GFR NON-AFRICAN AMERICAN > 60
[2018-03-25] MEDS: Multiple Vitamins Tab PO SCH (09:44)
[2018-03-25] MEDS: Enoxaparin 40 mg Syringe SC SCH (09:46)
--- NOTE | 2018-03-25 10:35 | CP.PCM.PN ---
Subjective - Date & Time of Evaluation Date of Evaluation: 03/24/18 Time of Evaluation: 18:30 - Subjective Subjective: Pt seen & evalauted at bedside, cont iv rx for 7 days will repeat blood cultures Objective - Vital Signs/Intake and Output Vital Signs (last 24 hours): Temp Pulse Resp BP Pulse Ox 98.1 F 73 20 112/71 96 03/25/18 07:52 03/25/18 07:52 03/25/18 07:52 03/25/18 07:52 03/25/18 07:52 Intake and Output: 03/25/18 03/25/18 06:59 18:59 Intake Total 540 Output Total 3 Balance 537 - Medications Medications: Current Medications Acetaminophen (Tylenol 325mg Tab) 650 mg PO Q6 PRN PRN Reason: Pain, moderate (4-7) Last Admin: 03/19/18 15:42 Dose: 650 mg Al Hydrox/Mg Hydrox/Simethicone (Maalox 30 Ml) 30 ml PO TID PRN PRN Reason: Indigestion / Heartburn Duloxetine HCl (Cymbalta) 60 mg PO DAILY [facility] Last Admin: 03/25/18 09:45 Dose: 60 mg Enoxaparin Sodium (Lovenox) 40 mg SC DAILY [facility] Last Admin: 03/25/18 09:46 Dose: Not Given Folic Acid (Folic Acid) 1 mg PO DAILY [facility] Last Admin: 03/25/18 09:45 Dose: 1 mg Gabapentin (Neurontin) 300 mg PO TID [facility] Last Admin: 03/25/18 09:44 Dose: 300 mg Aztreonam 2 gm/ Sodium (Chloride) 100 mls @ 100 mls/hr IVPB Q8H NATHALY PRN Reason: Protocol Last Admin: 03/25/18 02:03 Dose: 100 mls/hr Loperamide HCl (Imodium) 2 mg PO Q8 PRN PRN Reason: Diarrhea Last Admin: 03/22/18 09:21 Dose: 2 mg Lorazepam (Ativan) 1 mg PO Q6 PRN PRN Reason: Anxiety Last Admin: 03/24/18 21:05 Dose: 1 mg Lorazepam (Ativan) 1 mg PO Q24H NATHALY PRN Reason: Taper Stop: 03/25/18 10:44 Last Admin: 03/24/18 10:43 Dose: 1 mg Multivitamins (Hexavitamin) 1 tab PO DAILY [facility] Last Admin: 03/25/18 09:44 Dose: 1 tab Nicotine (Nicoderm Cq) 1 patch TD DAILY [facility] Last Admin: 03/25/18 09:46 Dose: 1 patch Ondansetron HCl (Zofran Tab) 4 mg PO Q8 PRN PRN Reason: Nausea/Vomiting Thiamine HCl (Vitamin B1 Tab) 100 mg PO DAILY [facility] Last Admin: 03/25/18 09:44 Dose: 100 mg Trazodone HCl (Desyrel) 100 mg PO HS PRN PRN Reason: Insomnia - Labs Labs: 03/21/18 11:33 03/25/18 08:02 Assessment and Plan (1) Cellulitis Status: Acute (2) Depressed Status: Acute (3) Drug abuse Status: Acute (4) Major depressive disorder, recurrent severe without psychotic features Status: Acute
--- NOTE | 2018-03-25 16:51 | CP.PCM.PN ---
Subjective - Date & Time of Evaluation Date of Evaluation: 03/25/18 Time of Evaluation: 11:00 - Subjective Subjective: Alert and oriented x3 no sob, chest pain or distress noted. Objective - Vital Signs/Intake and Output Vital Signs (last 24 hours): Temp Pulse Resp BP Pulse Ox 98.1 F 73 20 112/71 96 03/25/18 07:52 03/25/18 07:52 03/25/18 07:52 03/25/18 07:52 03/25/18 07:52 Intake and Output: 03/25/18 03/25/18 06:59 18:59 Intake Total 540 500 Output Total 3 Balance 537 500 - Labs Labs: 03/21/18 11:33 03/25/18 08:02 Assessment and Plan - Assessment and Plan (Free Text) Assessment: 37 year old male admitted with leg swelling, depression, alcohol and drug addiction. Seen and examined. Leg swelling and pain has been resolved, antibiotics completed for 7 days. Also cleared by psyche for discharge. Patient is homeless and was given information regarding retirement homes by the health and social care teacher. No acute pain or distress noted. Discussed with DR Pulido, plan to discharge home today. Prescriptions given for his psyche meds, advised to follow up with the psyche and PMD in 1 week.
--- NOTE | 2018-03-25 18:05 | CP.PCM.DIS ---
Provider - Provider Date of Admission: 03/18/18 21:56 Attending physician: Manolo Pulido MD Time Spent in preparation of Discharge (in minutes): 44 Diagnosis - Discharge Diagnosis (1) Cellulitis Status: Acute (2) Depressed Status: Acute (3) Drug abuse Status: Acute (4) Major depressive disorder, recurrent severe without psychotic features Status: Acute Hospital Course - Lab Results Lab Results: Micro Results 03/24/18 08:22 Blood-Venous Blood Culture - Preliminary NO GROWTH AFTER 24 HOURS 03/24/18 07:41 Blood-Venous Blood Culture - Preliminary NO GROWTH AFTER 24 HOURS 03/18/18 20:30 Blood Blood Culture - Final NO GROWTH AFTER 5 DAYS 03/18/18 20:30 Blood Gram Stain - Final TEST NOT PERFORMED 03/18/18 21:00 Blood S.aureus & Coag-Neg Staph PNA FISH - Final 03/18/18 21:00 Blood Blood Culture - Final Coagulase Neg Staphylococcus 03/18/18 21:00 Blood Gram Stain - Final Most Recent Lab Values WBC 7.1 K/uL (4.8-10.8) 03/21/18 11:33 RBC 4.21 Mil/uL (4.40-5.90) L 03/21/18 11:33 Hgb 13.5 g/dL (12.0-18.0) 03/21/18 11:33 Hct 38.2 % (35.0-51.0) 03/21/18 11:33 MCV 90.8 fL (80.0-94.0) 03/21/18 11:33 MCH 32.1 pg (27.0-31.0) H 03/21/18 11:33 MCHC 35.3 g/dL (33.0-37.0) 03/21/18 11:33 RDW 13.3 % (11.5-14.5) 03/21/18 11:33 Plt Count 258 K/uL (130-400) 03/21/18 11:33 MPV 8.2 fL (7.2-11.7) 03/21/18 11:33 Neut % (Auto) 73.2 % (50.0-75.0) 03/21/18 11:33 Lymph % (Auto) 14.6 % (20.0-40.0) L 03/21/18 11:33 [place] % (Auto) 11.6 % (0.0-10.0) H 03/21/18 11:33 Eos % (Auto) 0.1 % (0.0-4.0) 03/21/18 11:33 Baso % (Auto) 0.5 % (0.0-2.0) 03/21/18 11:33 Neut # (Auto) 5.2 K/uL (1.8-7.0) 03/21/18 11:33 Lymph # (Auto) 1.0 K/uL (1.0-4.3) 03/21/18 11:33 [place] # (Auto) 0.8 K/uL (0.0-0.8) 03/21/18 11:33 Eos # (Auto) 0.0 K/uL (0.0-0.7) 03/21/18 11:33 Baso # (Auto) 0.0 K/uL (0.0-0.2) 03/21/18 11:33 ESR 10 mm/hr (0-15) 03/18/18 20:59 Sodium 142 mmol/L (132-148) 03/25/18 08:02 Potassium 4.8 mmol/L (3.6-5.2) 03/25/18 08:02 Chloride 102 mmol/L (98-107) 03/25/18 08:02 Carbon Dioxide 30 mmol/L (22-30) 03/25/18 08:02 Anion Gap 15 (10-20) 03/25/18 08:02 BUN 14 mg/dL (9-20) 03/25/18 08:02 Creatinine 0.9 mg/dL (0.8-1.5) 03/25/18 08:02 Est GFR ( Amer) > 60 03/25/18 08:02 Est GFR (Non-Af Amer) > 60 03/25/18 08:02 Random Glucose 100 mg/dL (75-110) 03/25/18 08:02 Calcium 9.8 mg/dl (8.6-10.4) 03/25/18 08:02 Phosphorus 3.7 mg/dL (2.5-4.5) 03/18/18 20:59 Magnesium 1.7 mg/dL (1.6-2.3) 03/18/18 20:59 Total Bilirubin 0.5 mg/dL (0.2-1.3) 03/21/18 11:33 AST 130 U/L (17-59) H D 03/21/18 11:33 ALT 137 U/L (21-72) H 03/21/18 11:33 Alkaline Phosphatase 69 U/L (38-126) 03/21/18 11:33 C-Reactive Protein 42.00 mg/L (0.0-9.9) H 03/18/18 20:59 Total Protein 6.7 g/dL (6.3-8.3) 03/21/18 11:33 Albumin 3.7 g/dL (3.5-5.0) 03/21/18 11:33 Globulin 3.0 gm/dL (2.2-3.9) 03/21/18 11:33 Albumin/Globulin Ratio 1.3 (1.0-2.1) 03/21/18 11:33 Urine Color Diana (YELLOW) 03/19/18 01:01 Urine Clarity Clear (Clear) 03/19/18 01:01 Urine pH 5.0 (5.0-8.0) 03/19/18 01:01 Ur Specific [place] 1.026 (1.003-1.030) 03/19/18 01:01 Urine Protein Negative mg/dL (NEGATIVE) 03/19/18 01:01 Urine Glucose (UA) Normal mg/dL (Normal) 03/19/18 01:01 Urine Ketones Negative mg/dL (NEGATIVE) 03/19/18 01:01 Urine Blood Negative (NEGATIVE) 03/19/18 01:01 Urine Nitrate Negative (NEGATIVE) 03/19/18 01:01 Urine Bilirubin Negative (NEGATIVE) 03/19/18 01:01 Urine Urobilinogen 4.0 mg/dL (0.2-1.0) 03/19/18 01:01 Ur Leukocyte Esterase Neg Pro/uL (Negative) 03/19/18 01:01 Urine WBC (Auto) 1 /hpf (0-5) 03/19/18 01:01 Urine RBC (Auto) 1 /hpf (0-3) 03/19/18 01:01 Ur Squamous Epith Cells < 1 /hpf (0-5) 03/19/18 01:01 Vancomycin Trough 5.8 ug/mL (5.0-10.0) 03/20/18 07:23 Hepatitis A IgM Ab Negative (NEGATIVE) 03/21/18 06:18 Hep Bs Antigen Negative (NEGATIVE) 03/21/18 06:18 Hep B Core IgM Ab Negative (NEGATIVE) 03/21/18 06:18 Hepatitis C Antibody Negative (NEGATIVE) 03/21/18 06:18 HIV 1&2 Antibody Screen Negative (NEGATIVE) 03/21/18 06:18 - Hospital Course Hospital Course: 37 year old male admitted with leg swelling, depression, alcohol and drug addiction. Seen and examined. Leg swelling and pain has been resolved, antibiotics completed for 7 days. Also cleared by psyche for discharge. Patient is homeless and was given information regarding [facility] homes by the social organization professor. No acute pain or distress noted. Discussed with DR Pulido, plan to discharge home today. Prescriptions given for his psyche meds, advised to follow up with the psyche and PMD in 1 week. Discharge Exam - Head Exam Head Exam: ATRAUMATIC, NORMAL INSPECTION, NORMOCEPHALIC Discharge Plan - Discharge Medications Prescriptions: DULoxetine [Cymbalta] 60 mg PO DAILY #14 ecc traZODone [Desyrel] 100 mg PO HS PRN #14 tab PRN Reason: Insomnia Folic Acid 1 mg PO DAILY #30 tab Multivitamins [Hexavitamin] 1 tab PO DAILY #30 tab Gabapentin [Neurontin] 300 mg PO TID #90 cap Thiamine [Vitamin B1 Tab] 100 mg PO DAILY #30 tab - Follow Up Plan Condition: GUARDED Disposition: HOME/ ROUTINE Instructions: Quitting Smoking, Cellulitis (Skin Infection), Adult (DC), Duloxetine, Folic Acid, Gabapentin, Thiamine, Trazodone, Vitamins (Multiple/Oral ), Cellulitis (DC) Referrals: Sola Reed MD [Staff Provider] - Manolo Pulido MD [Staff Provider] -
== END 2018-03-25 14:20 | disposition home or self-care (01) | DRG 277 ==
LOC: C.ER 18:11 → C.6T 21:56 → C.9E 21:56 → C.3T 03-22 21:41
PROVIDERS: ADMIT Internal Medicine; ATTEND Internal Medicine
PROC: GZHZZZZ Group Psychotherapy (ICD-10-PCS; principal; 2018-03-18)
DX: L03.116 Cellulitis of left lower limb (principal); F33.2 Major depressive disorder, recurrent severe without psychotic features; F11.23 Opioid dependence with withdrawal; L03.115 Cellulitis of right lower limb; F17.210 Nicotine dependence, cigarettes, uncomplicated; F60.9 Personality disorder, unspecified; Z59.0 Homelessness; F10.10 Alcohol abuse, uncomplicated; Y90.9 Presence of alcohol in blood, level not specified

== ENCOUNTER 2018-03-31 23:59 | Inpatient (IN) | payer MEDICAID ==
[2018-03-31 23:59] VITALS: BMI 29.1
--- NOTE | 2018-04-01 01:14 | C.PDOC ---
History Of Present Illness 37 /o male with PMHx significant for bipolar disorder and longstanding heroin dependency, presents to the ED for evaluation of suicidal ideation. Of note, patient was recently admitted medically for a cellulitis involving his lower extremities and discharged home. Patient states he began using IV drugs the past few days. Today he ambulates to the hospital expressing the desire to kill himself via heroin overdose. Denies any other substance abuse. Of note, patient is somewhat noncompliant with treatment for bipolar disorder. Time Seen by Provider: 04/01/18 01:08 Chief Complaint (Nursing): Psychiatric Evaluation History Per: Patient History/Exam Limitations: no limitations Onset/Duration Of Symptoms: Days Current Symptoms Are (Timing): Still Present Suicide/Self Injury Attempted (Context): None Modifying Factor(s): Other (Heroin) Associated Symptoms: Depression, Suicidal Thoughts Past Medical History Reviewed: Historical Data, Nursing Documentation, Vital Signs Vital Signs: Last Vital Signs Temp 98.6 F 04/01/18 03:22 Pulse 90 04/01/18 03:22 Resp 20 04/01/18 03:22 BP 136/90 04/01/18 03:22 Pulse Ox 99 04/01/18 03:22 - Medical History PMH: Bipolar Disorder, Depression, Personality Disorder Denies: Diabetes, Hepatitis, HIV, HTN, Seizures, Sexually Transmitted Disease - [facility] Procedures DETOXIFICATION SERVICES FOR SUBSTANCE ABUSE TREATMENT (01/17/18) GROUP PSYCHOTHERAPY (03/18/18) Family History: States: Unknown Family Hx - Social History Hx Alcohol Use: Yes Hx Substance Use: Yes - Immunization History Hx Tetanus Toxoid Vaccination: No Hx Influenza Vaccination: No Hx Pneumococcal Vaccination: No Review Of Systems Except As Marked, All Systems Reviewed And Found Negative. Psych: Positive for: Depression, Suicidal ideation, Other (Heroin abuse) Physical Exam - Physical Exam Appears: No Acute Distress, Other (Appears disheveled but awake and alert) Skin: Normal Color, Warm, Dry Head: Atraumatic, Normacephalic Eye(s): bilateral: Normal Inspection, PERRL, EOMI Nose: Normal Oral Mucosa: Moist Neck: Normal ROM, Supple Chest: Symmetrical Cardiovascular: Rhythm Regular, No Murmur Respiratory: Normal Breath Sounds, No Accessory Muscle Use Gastrointestinal/Abdominal: Soft, No Tenderness, No Distention Extremity: Normal ROM, No Tenderness, Swelling (dependent edema bilaterally to LE, minimal residual cellulitis), Other (Fresh needle track briggs to left antecubital fossa) Pulses: Left Dorsalis Pedis: Normal, Right Dorsalis Pedis: Normal Neurological/Psych: Oriented x3, Normal Speech, Other (Depressed mood) Gait: Steady ED Course And Treatment - Laboratory Results Result Diagrams: 04/01/18 01:25 04/01/18 01:25 O2 Sat by Pulse Oximetry: 99 (RA) Pulse Ox Interpretation: Normal Medical Decision Making Medical Decision Making: Initial Impression: Drug dependency, suicidal ideation Plan: --Routine labs --Crisis evaluation Disposition - Disposition Disposition: HOSPITALIZED Disposition Time: 05:14 Condition: FAIR - Clinical Impression Clinical Impression: Manic bipolar I disorder, Heroin abuse - Scribe Statement The provider has reviewed the documentation as recorded by the Scribe (Donna Medina) Provider Attestation: All medical record entries made by the Scribe were at my direction and personally dictated by me. I have reviewed the chart and agree that the record accurately reflects my personal performance of the history, physical exam, medical decision making, and the department course for this patient. I have also personally directed, reviewed, and agree with the discharge instructions and disposition.
[2018-04-01 01:28] LABS: BASO # 0.1 K/uL (0.0-0.2); BASO % 1.1 % (0.0-2.0); EOS # 0.2 K/uL (0.0-0.7); EOS % 2.6 % (0.0-4.0); HEMOGLOBIN 12.6 g/dL (12.0-18.0); LYMPH # 1.8 K/uL (1.0-4.3); MEAN CORPUSCULAR HEMOGLOBIN 31.7 pg (27.0-31.0); MEAN CORPUSCULAR HGB CONC 34.5 g/dL (33.0-37.0); MEAN PLATELET VOLUME 8.2 fL (7.2-11.7); MONO # 1.3 K/uL (0.0-0.8); MONO % 17.2 % (0.0-10.0); NEUT # 4.3 K/uL (1.8-7.0); NEUT % 56.1 % (50.0-75.0); RBC 3.98 Mil/uL (4.40-5.90); RED CELL DISTRIBUTION WIDTH 13.1 % (11.5-14.5); WHITE BLOOD COUNT 7.7 K/uL (4.8-10.8)
[2018-04-01 01:35] LABS: URINE AMORPHOUS SEDIMENT MODERATE /ul (<OCC); URINE BILIRUBIN NEGATIVE (NEGATIVE); URINE BLOOD NEGATIVE (NEGATIVE); URINE CLARITY Turbid (Clear); URINE COLOR Yellow (YELLOW); URINE GLUCOSE (UA) NORMAL (Normal); URINE LEUKOCYTE ESTERASE NEG Leu/uL (Negative); URINE PROTEIN NEGATIVE (NEGATIVE)
[2018-04-01 01:51] LABS: BARBITURATES, UR NEGATIVE (NEGATIVE); BENZODIAZEPINES, UR NEGATIVE (NEGATIVE); PHENCYCLIDINE, UR NEGATIVE (NEGATIVE)
[2018-04-01 01:58] LABS: ALB/GLOB RATIO 1.4 (1.0-2.1); ALBUMIN 4.1 g/dL (3.5-5.0); ALT/SGPT 67 U/L (21-72); AST/SGOT 46 U/L (17-59); BLOOD UREA NITROGEN 14 mg/dL (9-20); CALCIUM 9.5 mg/dl (8.6-10.4); GFR AFRICAN-AMERICAN > 60; GFR NON-AFRICAN AMERICAN > 60
[2018-04-01 02:19] LABS: OPIATES, UR POSITIVE (NEGATIVE)
--- NOTE | 2018-04-01 04:13 | PCM.BM ---
<Kiara Simms - Last Filed: 04/01/18 04:10> Treatment Plan Problems - Problems identified on initial assessmt Depression Date Initiated: 04/01/18 Time Initiated: 03:40 Assessment reference: NA Status: Active Treatment assets and liabiliti Patient Assests: adapts well, cooperative (knows his goal), educated, self- reliant, ADL independent, physically healthy, negotiates basic needs, cognitively intact Patient Liabilities: substance abuse, legal issue - Milieu Protocol Maintain good personal hygiene: daily Encourage regular showers, every shift Remind patient to perform daily oral care, every shift Assist patient to perform ADL's Conduct patient checks and document Observation sheet: Q15 minutes Maintain personal safety: every shift Educate patient to report safety concerns to staff, every shift Monitor environment for contraband/sharps Medication safety: Monitor for expected outcome, potential side effects: every shift, Assess barriers to learning: every shift, Assess readiness for medication education: every shift <Sola Reed - Last Filed: 04/01/18 12:56> - Diagnosis (1) Manic bipolar I disorder Status: Acute Interventions: 04/01/18 12:56 * Assess/adjust medications daily and /or as needed * See patient on an individual basis 7x/week to assess level of manic behaviors and stability * Discuss risks, benefits, side effects and alternatives of medications * (2) Drug abuse Status: Acute Interventions: 04/01/18 12:56 * Assess 7x/week regarding severity of withdrawal * Educate regarding risks, benefits, side effects and alternatives of medications * Use Motivational Interviewing for abstinence * Use CBT for relapse prevention * Medication management for withdrawal symptoms * Encourage medication assisted treatment * <Natalya Yates - Last Filed: 04/04/18 13:40> Family Contact Family involvement: Famliy/SO not involved - Goals for Treatment Patient goals for treatment: "I need to go to rehab." Discharge/Continuing Care - Education Needs Education Needs: Patient Medication, Patient Coping Skills, Patient Placement options, Patient Community resources - Discharge Discharge Criteria: Tolerates medication w/o severe side effects, No longer exhibiting s/s of withdrawal, Reduction of target symptoms Discharge to:: Substance Abuse Rehab - Treatment Team Participation Discussed with Family/SO: No Was Patient/Family/SO present at Treatment Team Meeting: Yes
[2018-04-01] MEDS ORDERED: Aluminum Hydroxide/Magnesium Hydroxide Susp (30 mL) PO PRN (08:38)
--- NOTE | 2018-04-01 10:34 | PCM.PSYCH ---
Initial Psychiatric Evaluation - Initial Psychiatric Evaluation Type of Admission: Voluntary Legal Status: Capacity Chief Complaint (in patient's own words): I relapsed on heroin and became increasingly depressed.' History of Present Illness and Precipitating Events: Pt is a 37yr old CM, who lives alone, came to the hospital because after he did some Heroin he became suicidal with a plan to overdose. Pt has history of multiple inpatient psychiatric hospitalizations. He was last discharged few weeks ago from [facility]. As per the pt he relapsed on heroin and drinking, soon after discharge. He reports of injecting 20 bags of heroin daily and consume almost 1 -2 pint of vodka daily. Pt said that he has been trying to overdose for weeks, but he keep waking up. Pt said he is feeling suicidal because of the following: legal issues, homelessness, no family and his addiction. Pt. said that he has never had any family, he grew up in foster care. He said that he has been in and out of trouble and struggling all his life. Pt said that is why he doesn't have a girlfriend and he is homeless because he cannot stay out of trouble and no woman wants to put up with him. Pt said his strength is (when not on drugs) he communicates well with others, and he is a good worker. Pt said his weakness is his mental health and his drug addiction. Pt was unable to say what his goal is in life. Pt presented with signs and symptoms of hopelessness, helplessness and worthlessness as he requested a bed for his suicidal thinking and his substance abuse problem. He reports withdrawal symptoms including nausea, back pain, sweating and headaches. He denies any AVH or any paranoia. PMH HTN Current Medications: Active Medications Generic Name Dose Route Start Last Admin Trade Name Freq PRN Reason Stop Dose Admin Al Hydrox/Mg Hydrox/Simethicone 30 ml 04/01/18 08:38 Maalox 30 Ml PO TID PRN Indigestion / Heartburn Clonidine HCl 0.1 mg 04/01/18 08:38 Catapres PO Q8 PRN COWS Score More or Equal to 5 Fluoxetine HCl 20 mg 04/01/18 10:00 Prozac PO DAILY NATHALY Furosemide 20 mg 04/01/18 10:00 Lasix PO DAILY NATHALY Gabapentin 300 mg 04/01/18 10:00 Neurontin PO TID NATHALY Hydroxyzine HCl 50 mg 04/01/18 10:00 Atarax PO QID NATHALY Loperamide HCl 2 mg 04/01/18 08:38 Imodium PO Q8 PRN Diarrhea Ondansetron HCl 4 mg 04/01/18 08:38 Zofran Tab PO Q8 PRN Nausea/Vomiting Trazodone HCl 100 mg 04/01/18 22:00 Desyrel PO HS NATHALY Past Psychiatric History - Past Psychiatric History Previous Treatment History: Inpatient Pertinent Medical Hx (Current Medical&Sleep Prob, Allergies): Allergies Allergy/AdvReac Type Severity Reaction Status Date / Time Penicillins Allergy Verified 03/18/18 18:33 FLUoxetine [Prozac] 40 mg PO DAILY #30 cap 01/23/18 Duloxetine HCl [Duloxetine] 60 mg PO DAILY 03/19/18 Furosemide [Lasix] 20 mg PO MDD x 5days 03/19/18 Hydroxyzine HCl 25 mg PO DAILY PRN 03/19/18 predniSONE [predniSONE Tab] 20 mg PO BID 03/19/18 DULoxetine [Cymbalta] 60 mg PO DAILY #14 ecc 03/25/18 Folic Acid 1 mg PO DAILY #30 tab 03/25/18 Gabapentin [Neurontin] 300 mg PO TID #90 cap 03/25/18 Multivitamins [Hexavitamin] 1 tab PO DAILY #30 tab 03/25/18 Thiamine [Vitamin B1 Tab] 100 mg PO DAILY #30 tab 03/25/18 traZODone [Desyrel] 100 mg PO HS PRN #14 tab 03/25/18 Review of Systems - Review of Systems All systems: reviewed and no additional remarkable complaints except - Psychiatric Psychiatric: Anxiety, Irritability, Suicidal Ideation Mental Status Examination - Personal Presentation Personal Presentation: Looks stated age - Affect Affect: Constricted, Depressed - Motor Activity Motor Activity: Calm - Reliability in Providing Information Reliability in Providing Information: Poor, due to altered mood - Speech Speech: Organized - Mood Mood: Depressed, Anxious - Formal Thought Process Formal Thought Process: No Impairment - Hallucinations/Delusions Hallucinations: Auditory - Obsessions/Compulsions Obsessions: No Compulsions: No - Cognitive Functions Orientation: Person, Place, Situation, Time Sensorium: Alert Attention/Concentration: Attentive Abstract Thinking: [place] Estimate of Intelligence: Below average Judgement: Imparied, as evidence by: Poor judgement, Imparied, as evidence by: Lack of insight into illness - Risk Risk: Homicidal, Withdrawal, Diminished functioning - Limitations Limitations: Living alone DSM 5 DX - DSM 5 DSM 5 Diagnosis: Major depressive disorder recurrent severe without psychotic features Opioid use disorder severe Opioid withdrawal Alcohol use disorder severe - Recommended/Plan of Treatment Treatment Recommendations and Plan of Treatment: Major depressive disorder recurrent severe without psychotic features Opioid use disorder severe Opioid withdrawal Alcohol use disorder severe -CBT -Psychoeducation -Supportive therapy, group therapy, individual therapy -Prozac 20 mg -Neurontin 300 mg by mouth 3 times a day -Trazodone 100 mg by mouth daily at bedtime -Clonidine when necessary -Methadone taper -Start prn meds -Use DE for abstinence -Librium prn - Smoking Cessation Smoking Cessation Initiated: No
--- NOTE | 2018-04-01 15:37 | CP.PCM.CON ---
<Alma Rosa Ash - Last Filed: 04/01/18 15:29> History of Present Illness - History of Present Illness History of Present Illness: CC: leg pain HPI: Patient is a 37 year old male with pmhx of cellulitis treated from 03/19-, heroin abuse, and alcohol abuse admitted to psychiatry for suicidal ideation. Medicine was consulted for lower extremity edema. Patient does not complain of any swelling, but does admit to lower extremity pain. Patient has lower extremity pain which he says has gotten better since he was treated for cellulitis. Patient feels like he is withdrawing. He denies any headache, chest pain, shortness of breath, nausea, vomiting, constipation, or diarrhea. PMD: none Allergies: penicillin PMHx: cellulitis, heroin abuse, alcohol abuse Psurg: none Famhx: unknown Social: tobacco -1ppd x 15 drinks 2 pints of hard liquor and 2 40oz beers daily for 2-3 years heroin -20 bags iv per day for 15 years Review of Systems - Constitutional Constitutional: absent: Chills, Fever - EENT Eyes: absent: Blurred Vision - Cardiovascular Cardiovascular: absent: Chest Pain, Dyspnea, Leg Ulcers, Pedal Edema - Respiratory Respiratory: absent: Dyspnea, Chest Congestion - Gastrointestinal Gastrointestinal: absent: Constipation, Diarrhea, Nausea, Vomiting - Genitourinary Genitourinary: absent: Difficulty Urinating - Musculoskeletal Musculoskeletal: Myalgias. absent: Numbness, Tingling - Integumentary Integumentary: absent: Change in Pigmentation, Lesions, Rash Past Patient History - Infectious Disease Hx of Infectious Diseases: None - Past Medical History & Family History Past Medical History?: Yes - Past Social History Smoking Status: Heavy Smoker > 10 Cigarettes Daily - CARDIAC Hx Hypertension: No - PULMONARY Hx Tuberculosis: No - NEUROLOGICAL Hx Seizures: No - HEMATOLOGICAL/ONCOLOGICAL Hx Human Immunodeficiency Virus (HIV): No - INTEGUMENTARY Other/Comment: cellulitus b/l L/E - MUSCULOSKELETAL/RHEUMATOLOGICAL Hx Falls: No - GENITOURINARY/GYNECOLOGICAL Hx Sexually Transmitted Disorders: No - PSYCHIATRIC Hx Bipolar Disorder: Yes Hx Depression: Yes Hx Substance Use: Yes - SURGICAL HISTORY Hx Surgeries: No - ANESTHESIA Hx Anesthesia: No Meds Allergies/Adverse Reactions: Allergies Allergy/AdvReac Type Severity Reaction Status Date / Time Penicillins Allergy Verified 03/18/18 18:33 - Medications Medications: Current Medications Al Hydrox/Mg Hydrox/Simethicone (Maalox 30 Ml) 30 ml PO TID PRN PRN Reason: Indigestion / Heartburn Chlordiazepoxide (Librium) 25 mg PO Q6 PRN PRN Reason: Symptoms of alcohol withdrawl Clonidine HCl (Catapres) 0.1 mg PO Q8 PRN PRN Reason: COWS Score More or Equal to 5 Fluoxetine HCl (Prozac) 20 mg PO DAILY [facility] Last Admin: 04/01/18 10:57 Dose: 20 mg Furosemide (Lasix) 20 mg PO DAILY [facility] Last Admin: 04/01/18 10:57 Dose: 20 mg Gabapentin (Neurontin) 300 mg PO TID [facility] Last Admin: 04/01/18 13:22 Dose: 300 mg Hydroxyzine HCl (Atarax) 50 mg PO QID [facility] Last Admin: 04/01/18 13:22 Dose: 50 mg Loperamide HCl (Imodium) 2 mg PO Q8 PRN PRN Reason: Diarrhea Methadone HCl (Methadone) 15 mg PO DAILY [facility] PRN Reason: Taper Stop: 04/05/18 09:59 Ondansetron HCl (Zofran Tab) 4 mg PO Q8 PRN PRN Reason: Nausea/Vomiting Trazodone HCl (Desyrel) 100 mg PO [facility] Physical Exam - Constitutional Appears: Non-toxic, No Acute Distress - Head Exam Head Exam: ATRAUMATIC, NORMAL INSPECTION, NORMOCEPHALIC - Eye Exam Eye Exam: EOMI, Normal appearance - ENT Exam ENT Exam: Mucous Membranes Moist - Respiratory Exam Respiratory Exam: Clear to Auscultation Bilateral, NORMAL BREATHING PATTERN. absent: Rales, Rhonchi, Wheezes, Respiratory Distress, Stridor - Cardiovascular Exam Cardiovascular Exam: REGULAR RHYTHM, RRR, +S1, +S2 - GI/Abdominal Exam GI & Abdominal Exam: Normal Bowel Sounds, Soft. absent: Tenderness - Extremities Exam Extremities exam: Positive for: full ROM, normal inspection, tenderness. Negative for: pedal edema - Neurological Exam Neurological exam: Alert, CN II-XII Intact, Oriented x3 - Psychiatric Exam Psychiatric exam: Depressed, Flat Affect - Skin Skin Exam: Intact, Normal Color, Warm Results - Vital Signs Recent Vital Signs: Last Vital Signs Temp 98 F 04/01/18 06:19 Pulse 71 04/01/18 06:19 Resp 18 04/01/18 06:19 BP 108/62 04/01/18 10:57 Pulse Ox 99 04/01/18 05:14 - Labs Result Diagrams: 04/01/18 01:25 04/01/18 01:25 Labs: Laboratory Results - last 24 hr 04/01/18 04/01/18 04/01/18 01:25 01:25 01:25 WBC 7.7 RBC 3.98 L Hgb 12.6 Hct 36.6 MCV 92.0 MCH 31.7 H MCHC 34.5 RDW 13.1 Plt Count 487 H D MPV 8.2 Neut % (Auto) 56.1 Lymph % (Auto) 23.0 Woods % (Auto) 17.2 H Eos % (Auto) 2.6 Baso % (Auto) 1.1 Neut # (Auto) 4.3 Lymph # (Auto) 1.8 Woods # (Auto) 1.3 H Eos # (Auto) 0.2 Baso # (Auto) 0.1 Sodium 142 Potassium 3.8 Chloride 100 Carbon Dioxide 32 H Anion Gap 13 BUN 14 Creatinine 0.9 Est GFR ( Amer) > 60 Est GFR (Non-Af Amer) > 60 Random Glucose 107 Calcium 9.5 Total Bilirubin 0.7 AST 46 ALT 67 Alkaline Phosphatase 59 Total Protein 7.1 Albumin 4.1 Globulin 3.0 Albumin/Globulin Ratio 1.4 Urine Color Yellow Urine Clarity Turbid Urine pH 7.0 Ur Specific [place] 1.017 Urine Protein Negative Urine Glucose (UA) Normal Urine Ketones Negative Urine Blood Negative Urine Nitrate Negative Urine Bilirubin Negative Urine Urobilinogen 2.0 Ur Leukocyte Esterase Neg Amorphous Sediment Moderate H Urine Opiates Screen Urine Methadone Screen Ur Barbiturates Screen Ur Phencyclidine Scrn Ur Amphetamines Screen U Benzodiazepines Scrn U Oth Cocaine Metabols U Cannabinoids Screen Alcohol, Quantitative < 10 04/01/18 01:25 WBC RBC Hgb Hct MCV MCH MCHC RDW Plt Count MPV Neut % (Auto) Lymph % (Auto) Woods % (Auto) Eos % (Auto) Baso % (Auto) Neut # (Auto) Lymph # (Auto) Woods # (Auto) Eos # (Auto) Baso # (Auto) Sodium Potassium Chloride Carbon Dioxide Anion Gap BUN Creatinine Est GFR ( Amer) Est GFR (Non-Af Amer) Random Glucose Calcium Total Bilirubin AST ALT Alkaline Phosphatase Total Protein Albumin Globulin Albumin/Globulin Ratio Urine Color Urine Clarity Urine pH Ur Specific [place] Urine Protein Urine Glucose (UA) Urine Ketones Urine Blood Urine Nitrate Urine Bilirubin Urine Urobilinogen Ur Leukocyte Esterase Amorphous Sediment Urine Opiates Screen Positive H Urine Methadone Screen Negative Ur Barbiturates Screen Negative Ur Phencyclidine Scrn Negative Ur Amphetamines Screen Negative U Benzodiazepines Scrn Negative U Oth Cocaine Metabols Negative U Cannabinoids Screen Negative Alcohol, Quantitative Assessment & Plan - Assessment and Plan (Free Text) Assessment: LE pain on exam no signs of cellulitis, no edema no leukocytosis afebrile continue to monitor Polysubstance abuse as per psychiatry Please re-consult if needed <Delfino Kay H - Last Filed: 04/01/18 15:58> Meds - Medications Medications: Current Medications Al Hydrox/Mg Hydrox/Simethicone (Maalox 30 Ml) 30 ml PO TID PRN PRN Reason: Indigestion / Heartburn Chlordiazepoxide (Librium) 25 mg PO Q6 PRN PRN Reason: Symptoms of alcohol withdrawl Clonidine HCl (Catapres) 0.1 mg PO Q8 PRN PRN Reason: COWS Score More or Equal to 5 Fluoxetine HCl (Prozac) 20 mg PO DAILY [facility] Last Admin: 04/01/18 10:57 Dose: 20 mg Furosemide (Lasix) 20 mg PO DAILY [facility] Last Admin: 04/01/18 10:57 Dose: 20 mg Gabapentin (Neurontin) 300 mg PO TID [facility] Last Admin: 04/01/18 13:22 Dose: 300 mg Hydroxyzine HCl (Atarax) 50 mg PO QID [facility] Last Admin: 04/01/18 13:22 Dose: 50 mg Loperamide HCl (Imodium) 2 mg PO Q8 PRN PRN Reason: Diarrhea Methadone HCl (Methadone) 15 mg PO DAILY [facility] PRN Reason: Taper Stop: 04/05/18 09:59 Ondansetron HCl (Zofran Tab) 4 mg PO Q8 PRN PRN Reason: Nausea/Vomiting Trazodone HCl (Desyrel) 100 mg PO [facility] Results - Vital Signs Recent Vital Signs: Last Vital Signs Temp 98 F 04/01/18 06:19 Pulse 60 04/01/18 15:34 Resp 18 04/01/18 06:19 BP 126/68 04/01/18 15:34 Pulse Ox 99 04/01/18 05:14 - Labs Result Diagrams: 04/01/18 01:25 04/01/18 01:25 Labs: Laboratory Results - last 24 hr 04/01/18 04/01/18 04/01/18 01:25 01:25 01:25 WBC 7.7 RBC 3.98 L Hgb 12.6 Hct 36.6 MCV 92.0 MCH 31.7 H MCHC 34.5 RDW 13.1 Plt Count 487 H D MPV 8.2 Neut % (Auto) 56.1 Lymph % (Auto) 23.0 Woods % (Auto) 17.2 H Eos % (Auto) 2.6 Baso % (Auto) 1.1 Neut # (Auto) 4.3 Lymph # (Auto) 1.8 Woods # (Auto) 1.3 H Eos # (Auto) 0.2 Baso # (Auto) 0.1 Sodium 142 Potassium 3.8 Chloride 100 Carbon Dioxide 32 H Anion Gap 13 BUN 14 Creatinine 0.9 Est GFR ( Amer) > 60 Est GFR (Non-Af Amer) > 60 Random Glucose 107 Calcium 9.5 Total Bilirubin 0.7 AST 46 ALT 67 Alkaline Phosphatase 59 Total Protein 7.1 Albumin 4.1 Globulin 3.0 Albumin/Globulin Ratio 1.4 Urine Color Yellow Urine Clarity Turbid Urine pH 7.0 Ur Specific [place] 1.017 Urine Protein Negative Urine Glucose (UA) Normal Urine Ketones Negative Urine Blood Negative Urine Nitrate Negative Urine Bilirubin Negative Urine Urobilinogen 2.0 Ur Leukocyte Esterase Neg Amorphous Sediment Moderate H Urine Opiates Screen Urine Methadone Screen Ur Barbiturates Screen Ur Phencyclidine Scrn Ur Amphetamines Screen U Benzodiazepines Scrn U Oth Cocaine Metabols U Cannabinoids Screen Alcohol, Quantitative < 10 04/01/18 01:25 WBC RBC Hgb Hct MCV MCH MCHC RDW Plt Count MPV Neut % (Auto) Lymph % (Auto) Woods % (Auto) Eos % (Auto) Baso % (Auto) Neut # (Auto) Lymph # (Auto) Woods # (Auto) Eos # (Auto) Baso # (Auto) Sodium Potassium Chloride Carbon Dioxide Anion Gap BUN Creatinine Est GFR ( Amer) Est GFR (Non-Af Amer) Random Glucose Calcium Total Bilirubin AST ALT Alkaline Phosphatase Total Protein Albumin Globulin Albumin/Globulin Ratio Urine Color Urine Clarity Urine pH Ur Specific [place] Urine Protein Urine Glucose (UA) Urine Ketones Urine Blood Urine Nitrate Urine Bilirubin Urine Urobilinogen Ur Leukocyte Esterase Amorphous Sediment Urine Opiates Screen Positive H Urine Methadone Screen Negative Ur Barbiturates Screen Negative Ur Phencyclidine Scrn Negative Ur Amphetamines Screen Negative U Benzodiazepines Scrn Negative U Oth Cocaine Metabols Negative U Cannabinoids Screen Negative Alcohol, Quantitative Attending/Attestation - Attestation I have personally seen and examined this patient.: Yes I have fully participated in the care of the patient.: Yes I have reviewed all pertinent clinical information: Yes Notes (Text): 04/01/18 15:57 Medical consult: Patient was seen and examined by me, agrees the above note by certified medical records coder. There may be just been some confusion, when I was called by the nurse from the psychiatry floor with regards to this consult she explained to me that the medicine team was consulted because the patient has a history of DC and cardiac disease. We came in and saw the patient he said that he did not have DC or cardiac history but that he was having lower extremity leg pain. Review of the medical records showed that he was recently in the hospital before being treated of lower extremity cellulitis. When we came and examined the legs, there was no area of erythema, there were no open wounds. He did have a very small area at the Achilles area of his heel that had a scar however it was closed and not draining there was no erythema around this area. He had bilateral strong pulses in the lower extremity. Both feet were warm. There is no edema, and no swelling. Review of lab work shows that he does not have white blood cell count. He has been afebrile At this time our advice is to simply monitor the patient to see how he does. Please reconsult us should he have any noticeable complications Thank you very much, Delfino Kay
[2018-04-02 06:47] VITALS: O2SAT 98
--- NOTE | 2018-04-02 20:32 | PCM.PYCHPN ---
Psychiatric Progress Note - Psychiatric Progress Note Patient seen today, length of contact: 15 minutes Patient Chief Complaint: "I'm still feeling depressed" Problems Identified/Issues Discussed: Pt was seen and evalauted. Chart reviewed. Nurse input received. Pt reported that he is still feeling depressed. However, he reported some improvements in his withdrawal symptoms. He needs more time to stabilized on meds. He denied SI , HI, intent or plan. Medication Change: No Medical Record Reviewed: Yes Mental Status Examination - Cognitive Function Orientation: Person, Place, Situation, Time Memory: Intact Attention: Poor Concentration: WNL Association: Loose Fund of Knowledge: WNL Decription of patient's judgement and insights: improving/limited - Mood Mood: Depressed, Anxious - Affect Affect: Constricted, Depressed - Speech Speech: Soft - Formal Thought Process Formal Thought Process: No Impairment Psychotic Thoughts and Behaviors: denied - Suicidal Ideation Suicidal Ideation: No - Homicidal Ideation Homicidal Ideation: No Goal/Treatment Plan - Goal/Treatment Plan Need for Continued Stay: Severe depression anxiety, Discharge may exacerbated symptoms Progress Toward Problem(s) and Goals/Treatment Plan: Continue current treatment and management. Psychoeducation Supportive therapy provided Encouraged him to attend and participate in groups Medication, benefits, risk were discussed with the pt. He verbalized understand and agree with treatment plan Estimated Date of D/C: 04/07/18
--- NOTE | 2018-04-03 15:32 | PCM.PYCHPN ---
Psychiatric Progress Note - Psychiatric Progress Note Patient seen today, length of contact: 15 minutes Patient Chief Complaint: "Medication is helping me" Problems Identified/Issues Discussed: The pt is seen, chart reviewed, case discussed with staff. Support given, CBT and IN used briefly No new symptoms reported, improving slowly and needs more time No SEs from medications, risks discussed. After care discussed Medication Change: No Medical Record Reviewed: Yes Mental Status Examination - Cognitive Function Orientation: Person, Place, Situation, Time Memory: Intact Attention: WNL Concentration: WNL Association: WNL Fund of Knowledge: WN Decription of patient's judgement and insights: improving/improving - Mood Mood: Depressed, Anxious - Affect Affect: Constricted, Depressed - Speech Speech: Appropriate - Formal Thought Process Formal Thought Process: No Impairment - Suicidal Ideation Suicidal Ideation: No Plan: denied - Homicidal Ideation Homicidal Ideation: No Plan: denied Goal/Treatment Plan - Goal/Treatment Plan Need for Continued Stay: Severe depression anxiety, Discharge may exacerbated symptoms Progress Toward Problem(s) and Goals/Treatment Plan: Continue current treatment and management. Psychoeducation Supportive therapy provided Encouraged him to attend and participate in groups Medication, benefits, risk were discussed with the pt. He verbalized understand and agree with treatment plan Estimated Date of D/C: 04/07/18 - Smoking Cessation Smoking Cessation Initiated: Yes
--- NOTE | 2018-04-04 11:09 | PCM.PYCHPN ---
Psychiatric Progress Note - Psychiatric Progress Note Patient seen today, length of contact: 15 minutes Patient Chief Complaint: I relapsed on heroin and became increasingly depressed.' Medication Change: No Medical Record Reviewed: Yes Mental Status Examination - Cognitive Function Orientation: Person, Place, Situation, Time Memory: Intact Attention: WNL Concentration: WNL Association: WNL Fund of Knowledge: WNL - Mood Mood: Depressed, Anxious - Affect Affect: Constricted, Depressed - Speech Speech: Appropriate - Formal Thought Process Formal Thought Process: No Impairment - Suicidal Ideation Suicidal Ideation: No - Homicidal Ideation Homicidal Ideation: No Goal/Treatment Plan - Goal/Treatment Plan Need for Continued Stay: Severe depression anxiety, Discharge may exacerbated symptoms Progress Toward Problem(s) and Goals/Treatment Plan: Major depressive disorder recurrent severe without psychotic features Opioid use disorder severe Opioid withdrawal Alcohol use disorder severe -CBT -Psychoeducation -Supportive therapy, group therapy, individual therapy -Prozac 20 mg -Neurontin 300 mg by mouth 3 times a day -Trazodone 100 mg by mouth daily at bedtime -Clonidine when necessary -Methadone taper -Start prn meds -Use [place] for abstinence -Librium prn Estimated Date of D/C: 04/07/18
--- NOTE | 2018-04-05 11:18 | PCM.PYCHPN ---
Psychiatric Progress Note - Psychiatric Progress Note Patient seen today, length of contact: 15 minutes Patient Chief Complaint: I relapsed on heroin and became increasingly depressed.' Medication Change: No Medical Record Reviewed: Yes Mental Status Examination - Cognitive Function Orientation: Person, Place, Situation, Time Memory: Intact Attention: WNL Concentration: WNL Association: WNL Fund of Knowledge: WNL - Mood Mood: Depressed, Anxious - Affect Affect: Constricted, Depressed - Speech Speech: Appropriate - Formal Thought Process Formal Thought Process: No Impairment - Suicidal Ideation Suicidal Ideation: No - Homicidal Ideation Homicidal Ideation: No Goal/Treatment Plan - Goal/Treatment Plan Need for Continued Stay: Severe depression anxiety, Discharge may exacerbated symptoms Progress Toward Problem(s) and Goals/Treatment Plan: Major depressive disorder recurrent severe without psychotic features Opioid use disorder severe Opioid withdrawal Alcohol use disorder severe -CBT -Psychoeducation -Supportive therapy, group therapy, individual therapy -Prozac 20 mg -Neurontin 300 mg by mouth 3 times a day -Trazodone 100 mg by mouth daily at bedtime -Clonidine when necessary -Methadone taper -Start prn meds -Use [place] for abstinence -Librium prn Estimated Date of D/C: 04/07/18
--- NOTE | 2018-04-06 18:51 | PCM.PYCHPN ---
Psychiatric Progress Note - Psychiatric Progress Note Patient seen today, length of contact: 15 minutes Patient Chief Complaint: "Medication is helping me" Problems Identified/Issues Discussed: The pt is seen, chart reviewed, case discussed with staff. Support given, CBT and [place] used briefly No new symptoms reported, improving slowly and needs more time. No SEs from medications, risks discussed. Pt reported he is feeling drowsy and sedated in the AM and needs less trazodone. After care discussed Medication Change: Yes (decrease trazodone) Medical Record Reviewed: Yes Mental Status Examination - Cognitive Function Orientation: Person, Place, Situation, Time Memory: Intact Attention: WNL Concentration: WNL Association: WN Fund of Knowledge: [facility] Decription of patient's judgement and insights: improving/improving - Mood Mood: Anxious - Affect Affect: Constricted, Depressed - Speech Speech: Appropriate - Formal Thought Process Formal Thought Process: No Impairment Psychotic Thoughts and Behaviors: denied - Suicidal Ideation Suicidal Ideation: No Plan: denied - Homicidal Ideation Homicidal Ideation: No Plan: denied Goal/Treatment Plan - Goal/Treatment Plan Need for Continued Stay: Severe depression anxiety, Discharge may exacerbated symptoms Progress Toward Problem(s) and Goals/Treatment Plan: Continue current treatment and management, except decrease Trazodone 50 mg po HS prn for insomnia Psychoeducation Supportive therapy provided Encouraged him to attend and participate in groups Medication, benefits, risk were discussed with the pt. He verbalized understand and agree with treatment plan Estimated Date of D/C: 04/07/18
[2018-04-07 06:30] VITALS: PULSE 64; RESP 18; TEMP 97.6
[2018-04-07 10:11] VITALS: BP 100/60
--- NOTE | 2018-04-07 10:41 | PCM.PYCHDC ---
Mental Status Examination - Mental Status Examination Orientation: Person, Place, Situation, Time Memory: Intact Mood: Neutral Affect: Constricted Speech: Soft Attention: WNL Concentration: WNL Association: WNL Fund of Knowledge: WNL Formal Thought Process: No Impairment Description of patient's judgement and insight: good, fair Psychotic Thoughts and Behaviors: denies any AVH Suicidal Ideation: No Current Homicidal Ideation?: No Discharge Summary - Discharge Note Reason for Hospitalization: Pt is a 37yr old CM, who lives alone, came to the hospital because after he did some Heroin he became suicidal with a plan to overdose. Pt has history of multiple inpatient psychiatric hospitalizations. He was last discharged few weeks ago from [facility]. As per the pt he relapsed on heroin and drinking, soon after discharge. He reports of injecting 20 bags of heroin daily and consume almost 1 -2 pint of vodka daily. Pt said that he has been trying to overdose for weeks, but he keep waking up. Pt said he is feeling suicidal because of the following: legal issues, homelessness, no family and his addiction. Pt. said that he has never had any family, he grew up in foster care. He said that he has been in and out of trouble and struggling all his life. Pt said that is why he doesn't have a girlfriend and he is homeless because he cannot stay out of trouble and no woman wants to put up with him. Pt said his strength is (when not on drugs) he communicates well with others, and he is a good worker. Pt said his weakness is his mental health and his drug addiction. Pt was unable to say what his goal is in life. Pt presented with signs and symptoms of hopelessness, helplessness and worthlessness as he requested a bed for his suicidal thinking and his substance abuse problem. He reports withdrawal symptoms including nausea, back pain, sweating and headaches. He denies any AVH or any paranoia. Consultations:: List each consultation separately and include: 1. Reason for request. 2. Findings. 3. Follow-up Summary of Hospital Course include:: 1. Description of specific treatment plan utilized for patients during their course of treatmen. 2. Summarize the time- course for resolution of acute symptoms and/or regressed behaviors. 3. Describe issues identified and worked on during hospitalization. 4. Describe medication utilized. 5. Describe medical problems identified and treated. 6. Reassessment of suicide risk Summary of Hospital Course: Pt is a 37yr old CM, who lives alone, came to the hospital because after he did some Heroin he became suicidal with a plan to overdose. Pt has history of multiple inpatient psychiatric hospitalizations. He was last discharged few weeks ago from [facility]. As per the pt he relapsed on heroin and drinking, soon after discharge. He reports of injecting 20 bags of heroin daily and consume almost 1 -2 pint of vodka daily. Pt said that he has been trying to overdose for weeks, but he keep waking up. Pt said he is feeling suicidal because of the following: legal issues, homelessness, no family and his addiction. Pt. said that he has never had any family, he grew up in foster care. He said that he has been in and out of trouble and struggling all his life. Pt said that is why he doesn't have a girlfriend and he is homeless because he cannot stay out of trouble and no woman wants to put up with him. Pt said his strength is (when not on drugs) he communicates well with others, and he is a good worker. Pt said his weakness is his mental health and his drug addiction. Pt was unable to say what his goal is in life. Pt presented with signs and symptoms of hopelessness, helplessness and worthlessness as he requested a bed for his suicidal thinking and his substance abuse problem. He reports withdrawal symptoms including nausea, back pain, sweating and headaches. He denies any AVH or any paranoia. PMH HTN - Diagnosis (1) Manic bipolar I disorder Current Visit: Yes Status: Acute (2) Drug abuse Current Visit: No Status: Acute - Final Diagnosis (DSM 5) Condition upon Discharge: FAIR DSM 5: Major depressive disorder recurrent severe without psychotic features Opioid use disorder severe Opioid withdrawal Alcohol use disorder severe Disposition: HOME/ ROUTINE Follow-up Treatment Plan: Major depressive disorder recurrent severe without psychotic features Opioid use disorder severe Opioid withdrawal Alcohol use disorder severe -CBT -Psychoeducation -Supportive therapy, group therapy, individual therapy -Prozac 20 mg -Neurontin 300 mg by mouth 3 times a day -Trazodone 100 mg by mouth daily at bedtime -Clonidine when necessary -Methadone taper -Start prn meds -Use [facility] for abstinence -Librium prn Prescriptions/Medication Reconciliation: DULoxetine [Cymbalta] 60 mg PO DAILY #30 ecc FLUoxetine [Prozac] 60 mg PO DAILY #30 cap Gabapentin [Neurontin] 300 mg PO BID #60 cap traZODone [Desyrel] 50 mg PO HS #30 tab
== END 2018-04-07 11:30 | disposition home or self-care (01) | DRG 430 ==
LOC: C.ER 23:59 → SUPCPDRO 23:59 → C.5E 04-01 02:49
PROVIDERS: ADMIT Psychiatry & Neurology Psychiatry; ATTEND Psychiatry & Neurology Psychiatry
PROC: GZHZZZZ Group Psychotherapy (ICD-10-PCS; principal; 2018-04-01)
DX: F33.2 Major depressive disorder, recurrent severe without psychotic features (principal); F11.23 Opioid dependence with withdrawal; F60.9 Personality disorder, unspecified; G47.00 Insomnia, unspecified; I10 Essential (primary) hypertension; F10.10 Alcohol abuse, uncomplicated; Z59.0 Homelessness; F17.210 Nicotine dependence, cigarettes, uncomplicated; F31.10 Bipolar disorder, current episode manic without psychotic features, unspecified

== ENCOUNTER 2018-04-16 01:48 | Emergency (ER) | payer MEDICAID ==
[2018-04-16 01:49] VITALS: BMI 29.1
[2018-04-16 03:02] LABS: SQUAMOUS EPITHIAL < 1 /hpf (0-5); URINE BILIRUBIN NEGATIVE (NEGATIVE); URINE BLOOD NEGATIVE (NEGATIVE); URINE CLARITY Hazy (Clear); URINE COLOR Amber (YELLOW); URINE GLUCOSE (UA) NORMAL (Normal); URINE LEUKOCYTE ESTERASE 1+ Leu/uL (Negative); URINE PROTEIN 1+ mg/dL (NEGATIVE)
[2018-04-16 03:03] LABS: BASO # 0.1 K/uL (0.0-0.2); BASO % 0.7 % (0.0-2.0); EOS # 0.3 K/uL (0.0-0.7); EOS % 3.1 % (0.0-4.0); HEMOGLOBIN 12.8 g/dL (12.0-18.0); LYMPH # 2.3 K/uL (1.0-4.3); LYMPH % 24.7 % (20.0-40.0); MEAN CORPUSCULAR HEMOGLOBIN 31.8 pg (27.0-31.0); MEAN CORPUSCULAR HGB CONC 34.9 g/dL (33.0-37.0); MEAN PLATELET VOLUME 8.2 fL (7.2-11.7); MONO % 10.6 % (0.0-10.0); NEUT # 5.6 K/uL (1.8-7.0); NEUT % 60.9 % (50.0-75.0); RBC 4.01 Mil/uL (4.40-5.90); RED CELL DISTRIBUTION WIDTH 12.8 % (11.5-14.5); WHITE BLOOD COUNT 9.2 K/uL (4.8-10.8)
[2018-04-16 03:08] LABS: ALB/GLOB RATIO 1.4 (1.0-2.1); ALBUMIN 4.2 g/dL (3.5-5.0); ALT/SGPT 38 U/L (21-72); AST/SGOT 26 U/L (17-59); BLOOD UREA NITROGEN 17 mg/dL (9-20); CALCIUM 9.5 mg/dl (8.6-10.4); GFR AFRICAN-AMERICAN > 60; GFR NON-AFRICAN AMERICAN > 60
[2018-04-16 03:12] LABS: BARBITURATES, UR NEGATIVE (NEGATIVE); BENZODIAZEPINES, UR NEGATIVE (NEGATIVE)
[2018-04-16 03:14] LABS: OPIATES, UR POSITIVE (NEGATIVE)
[2018-04-16 03:21] LABS: PHENCYCLIDINE, UR NEGATIVE (NEGATIVE)
--- NOTE | 2018-04-16 05:22 | C.PDOC ---
History Of Present Illness Patient presents to ED requesting heroin detox. He also states he has been feeling depressed and has had thoughts of hurting himself. He admits to use of heroin, marijuana and alcohol. Time Seen by Provider: 04/16/18 01:51 Chief Complaint (Nursing): Psychiatric Evaluation History Per: Patient History/Exam Limitations: intoxication (appears under influence of opiates) Onset/Duration Of Symptoms: Persistent Modifying Factor(s): Alcohol, Marijuana, Narcotics Severity: Moderate Past Medical History Reviewed: Historical Data, Nursing Documentation, Vital Signs Vital Signs: Last Vital Signs Temp 97.5 F L 04/16/18 05:33 Pulse 70 04/16/18 05:33 Resp 14 04/16/18 05:33 BP 120/80 04/16/18 05:33 Pulse Ox 97 04/16/18 05:33 - Medical History PMH: Anxiety, Bipolar Disorder, Depression (MANIC), Personality Disorder - [facility] Procedures DETOXIFICATION SERVICES FOR SUBSTANCE ABUSE TREATMENT (01/17/18) GROUP PSYCHOTHERAPY (04/01/18) Family History: States: No Known Family Hx - Social History Hx Alcohol Use: Yes Hx Substance Use: Yes - Immunization History Hx Tetanus Toxoid Vaccination: No Hx Influenza Vaccination: No Hx Pneumococcal Vaccination: No Review Of Systems Cardiovascular: Negative for: Chest Pain Respiratory: Negative for: Shortness of Breath Gastrointestinal: Negative for: Nausea, Vomiting, Abdominal Pain, Diarrhea Genitourinary: Negative for: Dysuria Neurological: Negative for: Altered Mental Status Psych: Positive for: Depression, Suicidal ideation, Other (substance abuse ) Physical Exam - Physical Exam Appears: Well, Non-toxic, Other (flat affect, appears to be under influence of opiates) Head: Atraumatic, Normacephalic Eye(s): bilateral: Other (pinpoint pupils B/L ) Oral Mucosa: Moist Cardiovascular: Rhythm Regular Respiratory: Normal Breath Sounds, No Rales, No Rhonchi, No Wheezing Gastrointestinal/Abdominal: Normal Exam, Bowel Sounds, Soft, No Tenderness Extremity: Bilateral: Atraumatic, Normal Color And Temperature, Normal ROM Neurological/Psych: Oriented x3 (mildy drowsy) Gait: Steady ED Course And Treatment - Laboratory Results Result Diagrams: 04/16/18 02:52 04/16/18 02:52 O2 Sat by Pulse Oximetry: 96 Progress Note: Blood work, UA, UDS ordered and reviewed. Patient medically cleared. He was evaluated by crisis counselor Padmini, who discussed patient with alterations sewer psychiatrist Dr. Reed. Patient has been cleared for discharge from psychiatric standpoint, and instructed to follow up with [facility] as scheduled. He is AAOx3, clinically sober and ambulating normally. Patient instructed to return to ED if he has worsening symptoms. Disposition Counseled Patient/Family Regarding: Studies Performed, Diagnosis, Need For Followup - Disposition Referrals: [facility] [Outside] [place] [facility] [Outside] Disposition: HOME/ ROUTINE Disposition Time: 05:20 Condition: STABLE Additional Instructions: FOLLOW UP AT [facility] SCHEDULED RETURN TO ER IF YOU HAVE ANY WORSENING OR CONCERNING SYMPTOMS Instructions: Drug Abuse and Drug Addiction (DC) Forms: [employer] (Italian) Print Language: PASHTO - POA Present On Arrival: None - Clinical Impression Clinical Impression: Heroin dependence, Alcohol dependence
[2018-04-16 05:34] VITALS: BP 120/80; PULSE 70; RESP 14; TEMP 97.5
[2018-04-18 14:02] VITALS: O2SAT 96
== END 2018-04-16 05:34 | disposition home or self-care (01) ==
LOC: C.ER 01:48
DX: F11.20 Opioid dependence, uncomplicated (principal); F10.20 Alcohol dependence, uncomplicated

== ENCOUNTER 2018-04-17 12:52 | Emergency (ER) | payer MEDICAID ==
[2018-04-17 12:53] VITALS: BMI 27.8
[2018-04-17 13:11] VITALS: BP 122/75; PULSE 59; RESP 13; TEMP 97.4; O2SAT 96
--- NOTE | 2018-04-17 14:03 | C.PDOC ---
History Of Present Illness 37 y/o male presents to ED requesting detox from heroin. Pt was seen here 10 days ago for suicidal ideation and detox and was discharged. Pt was seen at [place] [facility] today requesting detox, states he was referred to [facility]. Pt states he has thought of killing himself because he has no reason to live. Otherwise, denies any active physical complaints at this time. Time Seen by Provider: 04/17/18 13:16 Chief Complaint (Nursing): Substance Abuse History Per: Patient History/Exam Limitations: no limitations Past Medical History Reviewed: Historical Data, Nursing Documentation, Vital Signs Vital Signs: Last Vital Signs Temp 97.4 F L 04/17/18 13:09 Pulse 59 L 04/17/18 13:09 Resp 13 04/17/18 13:09 BP 122/75 04/17/18 13:09 Pulse Ox 96 04/17/18 14:20 - Medical History PMH: Anxiety, Bipolar Disorder, Depression, Personality Disorder Denies: Diabetes, Hepatitis, HIV, HTN, Seizures, Sexually Transmitted Disease - [facility] Procedures DETOXIFICATION SERVICES FOR SUBSTANCE ABUSE TREATMENT (01/17/18) GROUP PSYCHOTHERAPY (04/01/18) Family History: States: Unknown Family Hx - Social History Hx Alcohol Use: Yes Hx Substance Use: Yes - Immunization History Hx Tetanus Toxoid Vaccination: No Hx Influenza Vaccination: No Hx Pneumococcal Vaccination: No Review Of Systems Except As Marked, All Systems Reviewed And Found Negative. Constitutional: Negative for: Fever, Chills Cardiovascular: Negative for: Chest Pain Respiratory: Negative for: Shortness of Breath Psych: Positive for: Suicidal ideation Physical Exam - Physical Exam Appears: Non-toxic, No Acute Distress, Other (no signs of injury) Skin: Normal Color, Warm, Dry Head: Atraumatic, Normacephalic Eye(s): bilateral: Normal Inspection Oral Mucosa: Moist Neck: Supple Cardiovascular: Rhythm Regular Respiratory: Normal Breath Sounds, No Rales, No Rhonchi, No Wheezing Gastrointestinal/Abdominal: Soft, No Tenderness Extremity: Normal ROM Neurological/Psych: Oriented x3, Normal Speech ED Course And Treatment O2 Sat by Pulse Oximetry: 96 Pulse Ox Interpretation: Normal Medical Decision Making Medical Decision Making: Case discussed with crisis. Collateral info obtained from [place]. Patient did not present there with suicidal ideation and did not tell them he was recently discharged form our psychiatric department. He requested detox and was told that we have a detox bed available. Dr Reed knows the patient and refuses to take accept pt to psych floor or detox unit. Disposition - Disposition Disposition: HOME/ ROUTINE Disposition Time: 14:02 Condition: STABLE Instructions: Depression, Drug Abuse and Drug Addiction (DC) Forms: [employer] ([place]) - Clinical Impression Clinical Impression: Drug dependence, Depressive disorder - Scribe Statement The provider has reviewed the documentation as recorded by the Scribe KP All medical record entries made by the Scribe were at my direction and personally dictated by me. I have reviewed the chart and agree that the record accurately reflects my personal performance of the history, physical exam, medical decision making, and the department course for this patient. I have also personally directed, reviewed, and agree with the discharge instructions and disposition.
== END 2018-04-17 14:13 | disposition home or self-care (01) ==
LOC: C.ER 12:52
DX: F19.20 Other psychoactive substance dependence, uncomplicated (principal); F32.9 Major depressive disorder, single episode, unspecified